=== PATIENT | male | born 1945 | race Caucasian/White ===

== ENCOUNTER 2021-05-05 08:30 | Outpatient (RCR) | payer SELFPAY ==
[2021-02-19 09:25] VITALS: PULSE 54
--- NOTE | 2021-03-24 08:24 | PCCPR ---
Absent Gerry called states he had his grandchildren this weekend and is sore from chasing them around. He has a wake and on . He will return o Monday.
== END 2021-05-05 15:38 | disposition home or self-care (01) ==
LOC: ANHCPREHAB 08:30
PROVIDERS: PCP Family Medicine; Visit Provider Family Medicine
DX: I50.30 Unspecified diastolic (congestive) heart failure (principal)
CPT/HCPCS: 93798; 99199

== ENCOUNTER 2022-01-17 09:16 | Emergency (ER) | payer MEDICARE, OTHER, SELFPAY ==
[2022-01-17 09:24] VITALS: BP 161/61; PULSE 64; RESP 16; TEMP 36.7; O2SAT 100
--- NOTE | 2022-01-17 09:32 | ED.SKABFB ---
HPI - Skin/Abscess/Foreign Bdy General Chief complaint: Skin/Abscess/Foreign Body Stated complaint: rash all over Time Seen by Provider: 01/17/22 09:32 Source: patient Mode of arrival: ambulatory Limitations: no limitations History of Present Illness HPI narrative: 76 yo M presents with c/o hives to bilateral axilla, back, wrists, thighs since yesterday. +itching. Taking benadryl with no relief. Denies changing any hygiene products, soaps or new foods. No known insect bites. Pt has been very stressed. Hx of cancer. Going to [place] this weekend for cancer check and gets very nervous before. All systems reviewed and negative except as noted above. Related Data Home Medications Medication Instructions Recorded Confirmed albuterol sulfate 90 mcg/actuation 1 inh inhalation QID PRN Shortness 02/19/21 01/17/22 aerosol inhaler Of Breath amlodipine 10 mg tablet 10 mg PO DAILY 02/19/21 01/17/22 aspirin 81 mg tablet 81 mg PO DAILY 02/19/21 01/17/22 atorvastatin 20 mg tablet 20 mg PO HS 02/19/21 01/17/22 baclofen 20 mg tablet 20 mg PO DAILY PRN Pain 02/19/21 01/17/22 budesonide 160 mcg-glycopyr 9 2 inh inhalation BID 02/19/21 01/17/22 mcg-formot 4.8 mcg/actuation HFA inhaler (Breztri Aerosphere) buspirone 5 mg tablet 5 mg PO BID 02/19/21 01/17/22 cephalexin 500 mg tablet 500 mg PO Q12H PRN Outbreak 02/19/21 01/17/22 diltiazem HCl 180 mg 180 mg PO DAILY 02/19/21 01/17/22 capsule,extended release 24 hr (Cartia XT) diphenhydramine 25 1 tablet PO HS PRN Sleep 02/19/21 01/17/22 mg-acetaminophen 500 mg tablet (Tylenol PM Extra Strength) ferrous sulfate 325 mg (65 mg 325 mg PO DAILY 02/19/21 01/17/22 iron) tablet (iron) finasteride 1 mg tablet 1 mg PO DAILY 02/19/21 01/17/22 furosemide 20 mg tablet (Lasix) 20 mg PO DAILY 02/19/21 01/17/22 lidocaine-prilocaine 2.5 %-2.5 % 1 applic topical ONCE PRN Pain 02/19/21 01/17/22 topical cream mbektjlbmbqa-usnqdjxk-ctkgsl tablet 1 tablet PO DAILY 02/19/21 01/17/22 sertraline 100 mg tablet (Zoloft) 100 mg PO DAILY 02/19/21 01/17/22 simethicone 80 mg chewable tablet 80 mg PO DAILY 02/19/21 01/17/22 tamsulosin 0.4 mg capsule 0.4 mg PO DAILY 02/19/21 01/17/22 zolpidem 12.5 mg tablet,extended 12.5 mg PO DAILY 02/19/21 01/17/22 release,multiphase Allergies Allergy/AdvReac Type Severity Reaction Status Date / Time TRENT Inhibitors Allergy Unknown Verified 01/17/22 09:34 hydrocodone Allergy Unknown Verified 01/17/22 09:34 metoprolol Allergy Unknown Verified 01/17/22 09:34 morphine Allergy Unknown Verified 01/17/22 09:34 rivaroxaban [From Xarelto] Allergy Unknown Verified 01/17/22 09:34 adhesive AdvReac Hives Verified 01/17/22 09:34 Review of Systems Review of Systems: CONSTITUTIONAL: Denies fever, chills, or sweats. EYES: Denies visual changes, redness, or discharge. ENT: Denies rhinorrhea, congestion, sore throat, or otalgia. CARDIOVASCULAR: Denies chest pain, palpitations, or edema. RESPIRATORY: Denies cough or dyspnea. GASTROINTESTINAL: Denies abdominal pain, nausea, vomiting, or diarrhea. GENITOURINARY: Denies dysuria or hematuria. SKIN: Reports itchy hives. MUSCULOSKELETAL: Denies back pain, joint pain, or myalgia. NEUROLOGIC: Denies headache, numbness, or weakness. PSYCHIATRIC: Denies anxiety or depression. All other systems reviewed are negative, except as documented in HPI. [facility] Family History Family History (Updated 02/19/21 @ 08:34 by Judi Castellanos RN) Father Non-Hodgkin lymphoma Mother Chronic obstructive pulmonary disease Social History Social History Smoking status: Never smoker Comments At time of signature, agree with nursing past medical, surgical, social and family history. There is no relevant family history pertinent to the presenting complaint. Exam Narrative: GENERAL: This is a well-nourished, well-developed patient, in no apparent distress. HEAD: normocephalic, atraumatic. EYES: PERRL. Sclera clear/white. Vision is grossly inta
[2022-01-17] MEDS: predniSONE 20 MG TABLET 40 MG PO (09:48)
== END 2022-01-17 09:50 | disposition home or self-care (01) ==
PROVIDERS: Emergency Provider Nurse Practitioner Family; PCP Family Medicine
DX: L50.9 Urticaria, unspecified (principal); I48.91 Unspecified atrial fibrillation; I11.0 Hypertensive heart disease with heart failure; I50.30 Unspecified diastolic (congestive) heart failure; E78.00 Pure hypercholesterolemia, unspecified; J44.9 Chronic obstructive pulmonary disease, unspecified; G47.30 Sleep apnea, unspecified
CPT/HCPCS: 99213; G0463; J7512

== ENCOUNTER 2022-06-14 10:31 | Emergency (ER) | payer MEDICARE, OTHER, SELFPAY ==
[2022-06-14 11:40] VITALS: BP 129/59; PULSE 71; RESP 16; TEMP 36.8; O2SAT 98
--- NOTE | 2022-06-14 12:42 | ED.URI ---
HPI - URI/Sore Throat General Chief Complaint: Upper Respiratory Infection Stated Complaint: Sore Throat Time Seen by Provider: 06/14/22 12:42 Source: patient and RN notes reviewed Mode of arrival: ambulatory Limitations: no limitations History of Present Illness HPI Narrative: 76-year-old male with history of recent immunotherapy presents with concern for sore throat. He reports 1 week history of symptoms. He reports mild cough, nausea and diarrhea. He reports taking Mucinex. He denies fever, aches, chills sweats. Reports he was recently at a hospital for his immunotherapy MD elicited complaint: cough and sore throat Related Data Home Medications Medication Instructions Recorded Confirmed albuterol sulfate 90 mcg/actuation 1 inh inhalation QID PRN Shortness 02/19/21 01/17/22 aerosol inhaler Of Breath amlodipine 10 mg tablet 10 mg PO DAILY 02/19/21 01/17/22 aspirin 81 mg tablet 81 mg PO DAILY 02/19/21 01/17/22 atorvastatin 20 mg tablet 20 mg PO HS 02/19/21 01/17/22 baclofen 20 mg tablet 20 mg PO DAILY PRN Pain 02/19/21 01/17/22 budesonide 160 mcg-glycopyr 9 2 inh inhalation BID 02/19/21 01/17/22 mcg-formot 4.8 mcg/actuation HFA inhaler (Breztri Aerosphere) buspirone 5 mg tablet 5 mg PO BID 02/19/21 01/17/22 diltiazem HCl 180 mg 180 mg PO DAILY 02/19/21 01/17/22 capsule,extended release 24 hr (Cartia XT) diphenhydramine 25 1 tablet PO HS PRN Sleep 02/19/21 01/17/22 mg-acetaminophen 500 mg tablet (Tylenol PM Extra Strength) ferrous sulfate 325 mg (65 mg 325 mg PO DAILY 02/19/21 01/17/22 iron) tablet (iron) finasteride 1 mg tablet 1 mg PO DAILY 02/19/21 01/17/22 furosemide 20 mg tablet (Lasix) 20 mg PO DAILY 02/19/21 01/17/22 lidocaine-prilocaine 2.5 %-2.5 % 1 applic topical ONCE PRN Pain 02/19/21 01/17/22 topical cream nyhavbxqvstk-cxxirozy-aysvda tablet 1 tablet PO DAILY 02/19/21 01/17/22 sertraline 100 mg tablet (Zoloft) 100 mg PO DAILY 02/19/21 01/17/22 simethicone 80 mg chewable tablet 80 mg PO DAILY 02/19/21 01/17/22 tamsulosin 0.4 mg capsule 0.4 mg PO DAILY 02/19/21 01/17/22 zolpidem 12.5 mg tablet,extended 12.5 mg PO DAILY 02/19/21 01/17/22 release,multiphase Allergies Allergy/AdvReac Type Severity Reaction Status Date / Time TRENT Inhibitors Allergy Unknown Verified 01/17/22 09:34 hydrocodone Allergy Unknown Verified 01/17/22 09:34 metoprolol Allergy Unknown Verified 01/17/22 09:34 morphine Allergy Unknown Verified 01/17/22 09:34 rivaroxaban [From Xarelto] Allergy Unknown Verified 01/17/22 09:34 adhesive AdvReac Hives Verified 01/17/22 09:34 Review of Systems Review of Systems: CONSTITUTIONAL: Denies malaise, chills, sweats, or fever. EYES: Denies visual changes, redness, or discharge. ENT: Reports rhinorrhea, sore throat. Denies congestion, sinus pain, otalgia CARDIOVASCULAR: Denies chest pain, palpitations, or edema. RESPIRATORY: Denies cough. Denies dyspnea. GASTROINTESTINAL: Denies abdominal pain, vomiting. Reports nausea, diarrhea SKIN: Denies rash or itching. MUSCULOSKELETAL: Denies myalgia. NEUROLOGIC: Denies headache. All systems reviewed & are unremarkable except as noted in HPI and below PMFSH Family History Family History (Updated 02/19/21 @ 08:34 by Judi Castellanos RN) Father Non-Hodgkin lymphoma Mother Chronic obstructive pulmonary disease Social History Social History Smoking status: Never smoker Comments At time of signature, agree with nursing past medical, surgical, social and family history. There is no relevant family history pertinent to the presenting complaint Exam Narrative: GENERAL: Well-appearing, well-nourished, and in no acute distress. HEAD: Normocephalic EYES: PERRLA, conjunctivae clear ENT: Nares clear, turbinates edematous and erythematous, clear discharge. Mucous membranes moist. TM pearly pa with sharp light reflex bilaterally; no tragal tenderness. Oropharynx not erythematous without lesions. Tonsils not enlarged and with
== END 2022-06-14 13:11 | disposition home or self-care (01) ==
PROVIDERS: Emergency Provider Nurse Practitioner; PCP Family Medicine
DX: J02.9 Acute pharyngitis, unspecified (principal)
CPT/HCPCS: 87081; 87880; 99213; G0463

== ENCOUNTER 2023-04-28 10:23 | Emergency (ER) | payer MEDICARE, OTHER, SELFPAY ==
--- NOTE | ~2023-04-28 | XR_ITS ---
EXAMINATION: XR chest 2V DATE: 04/28/2023 10:56 INDICATION: Cough TECHNIQUE: PA and lateral views of the chest are obtained. COMPARISON: None available FINDINGS: The lungs are free of acute opacities. No pleural effusion or pneumothorax. The cardiomedia stinal silhouette is normal. There is mild thoracic spondylosis. A right internal jugular Port-A-Cath ends with its tip in the distal superior vena cava. IMPRESSION: 1. No acute cardiopulmonary abnormality. Reviewed, dictated and finalized at location B.
[2023-04-28 10:35] VITALS: BP 136/52; PULSE 64; RESP 14; TEMP 36.6; O2SAT 96
[2023-04-28 10:51] VITALS: BP 136/52; PULSE 64; RESP 14; TEMP 36.6; O2SAT 96
--- NOTE | 2023-04-28 10:58 | ED.URI ---
HPI - URI/Sore Throat General Chief Complaint: Upper Respiratory Infection Stated Complaint: cough History of Present Illness HPI Narrative: PATIENT PRESENTS WITH A COUGH NO SHORTNESS OF BREATH AND NO CHEST PAIN. HISTORY OF PNEUMONIA AND IS CONCERNED THAT HE MAY HAVE PNEUMONIA AGAIN. Related Data Home Medications Medication Instructions Recorded Confirmed albuterol sulfate 90 mcg/actuation 1 inh inhalation QID PRN Shortness 02/19/21 04/28/23 aerosol inhaler Of Breath amlodipine 10 mg tablet 10 mg PO DAILY 02/19/21 04/28/23 atorvastatin 20 mg tablet 20 mg PO HS 02/19/21 04/28/23 baclofen 20 mg tablet 20 mg PO DAILY PRN Pain 02/19/21 04/28/23 budesonide 160 mcg-glycopyr 9 2 inh inhalation BID 02/19/21 04/28/23 mcg-formot 4.8 mcg/actuation HFA inhaler (Breztri Aerosphere) buspirone 5 mg tablet 5 mg PO BID 02/19/21 04/28/23 diltiazem HCl 180 mg 180 mg PO DAILY 02/19/21 04/28/23 capsule,extended release 24 hr (Cartia XT) ferrous sulfate 325 mg (65 mg 325 mg PO DAILY 02/19/21 04/28/23 iron) tablet (iron) finasteride 1 mg tablet 1 mg PO DAILY 02/19/21 04/28/23 furosemide 20 mg tablet (Lasix) 20 mg PO DAILY 02/19/21 04/28/23 habrttuxcdlm-swzkegfa-goqdoe tablet 1 tablet PO DAILY 02/19/21 04/28/23 sertraline 100 mg tablet (Zoloft) 100 mg PO DAILY 02/19/21 04/28/23 simethicone 80 mg chewable tablet 80 mg PO DAILY 02/19/21 04/28/23 tamsulosin 0.4 mg capsule 0.4 mg PO DAILY 02/19/21 04/28/23 zolpidem 12.5 mg tablet,extended 12.5 mg PO DAILY 02/19/21 04/28/23 release,multiphase aspirin 81 mg tablet,delayed 81 mg PO DAILY 04/28/23 04/28/23 release (Adult Low Dose Aspirin) Allergies Allergy/AdvReac Type Severity Reaction Status Date / Time TRENT Inhibitors Allergy Unknown Verified 04/28/23 10:40 hydrocodone Allergy Unknown Verified 04/28/23 10:40 metoprolol Allergy Unknown Verified 04/28/23 10:40 morphine Allergy Unknown Verified 04/28/23 10:40 rivaroxaban [From Xarelto] Allergy Unknown Verified 04/28/23 10:40 adhesive AdvReac Hives Verified 04/28/23 10:40 Review of Systems Review of Systems: CONSTITUTIONAL: DENIES FEVER, CHILLS, OR SWEATS. EYES: DENIES VISUAL CHANGES, REDNESS, OR DISCHARGE. ENT: DENIES RHINORRHEA, CONGESTION, SORE THROAT, OR OTALGIA. CARDIOVASCULAR: DENIES CHEST PAIN, PALPITATIONS, OR EDEMA. RESPIRATORY: DENIES COUGH OR DYSPNEA. GASTROINTESTINAL: DENIES ABDOMINAL PAIN, NAUSEA, VOMITING, OR DIARRHEA. GENITOURINARY: DENIES DYSURIA OR HEMATURIA. SKIN: DENIES RASH OR ITCHING. MUSCULOSKELETAL: DENIES BACK PAIN, JOINT PAIN, OR MYALGIA. NEUROLOGIC: DENIES HEADACHE, NUMBNESS, OR WEAKNESS. PSYCHIATRIC: DENIES ANXIETY OR DEPRESSION. [facility] Family History Family History (Updated 02/19/21 @ 08:34 by Judi Castellanos RN) Father Non-Hodgkin lymphoma Mother Chronic obstructive pulmonary disease Social History Social History Smoking status: Never smoker Comments AT TIME OF SIGNATURE, AGREE WITH NURSING PAST MEDICAL, SURGICAL, SOCIAL AND FAMILY HISTORY. THERE IS NO RELEVANT FAMILY HISTORY PERTINENT TO THE PRESENTING COMPLAINT Exam Narrative: GENERAL: WELL-APPEARING, WELL-NOURISHED, AND IN NO ACUTE DISTRESS. HEAD: NORMOCEPHALIC, ATRAUMATIC. EYES: PERRLA AND EOMI. ENT: NARES CLEAR, NO RHINORRHEA OR EPISTAXIS. MUCOUS MEMBRANES MOIST. NECK: SUPPLE. CHEST: CLEAR TO AUSCULTATION. NO RESPIRATORY DISTRESS. HEART: REGULAR RATE AND RHYTHM. NO MURMUR HEARD. NORMAL PERIPHERAL PULSES. ABDOMEN: SOFT, NONTENDER, NONDISTENDED, NORMAL ACTIVE BOWEL SOUNDS. EXTREMITIES: NORMAL RANGE OF MOTION. NO EDEMA. SKIN: WARM, DRY, NO RASH. NEURO: NO FOCAL DEFICITS. ALERT AND ORIENTED X3. TULIO COMA SCALE EYE OPENING: SPONTANEOUS 4 TULIO COMA SCALE MOTOR: OBEYS COMMANDS 6 TULIO COMA SCALE VERBAL: ORIENTED 5 TULIO COMA SCALE TOTAL 15 Course Course Level of Care: Express Care Visit Vital Signs Vital signs: Vital Signs Temperature 36.6 C 04/28/23 10:35 Pulse Rate 64 04/28/23
== END 2023-04-28 11:25 | disposition home or self-care (01) ==
PROVIDERS: Emergency Provider Nurse Practitioner Family; PCP Family Medicine
DX: J06.9 Acute upper respiratory infection, unspecified (principal); J40 Bronchitis, not specified as acute or chronic; Z79.899 Other long term (current) drug therapy; Z79.82 Long term (current) use of aspirin
CPT/HCPCS: 71046; 99213; G0463

== ENCOUNTER 2024-11-19 18:42 | Emergency (ER) | payer MEDICARE, OTHER, SELFPAY ==
--- NOTE | ~2024-11-19 | XR_ITS ---
CHEST RADIOGRAPH, PA AND LATERAL CLINICAL HISTORY: cough . COMPARISON: 04/28/2023 TECHNIQUE: PA and lateral views of the chest. FINDINGS Right internal jugular central venous port catheter redemonstrated with its tip projecting over the c avoatrial junction. The remainder of the cardiomediastinal silhouette is otherwise unremarkable. The lungs are clear. IMPRESSION: No focal infiltrate or effusion. Reviewed, dictated and finalized at location A.
--- OUTSIDE RECORDS SUMMARY | 2024-11-19 18:44 | XMS_ITS | Encounter Summary ---
Author Organization [facility] Address [address] [place] [address] Phone Care Team Providers Care Toe Laster Name Role Phone Olievr Tidwell MD PhD Unavailable [phone] Osmar Echevarria MD Unavailable [phone] Bryce Real MD Unavailable [phone] Heri Torres MD Primary Care Provider [phone] Michele Garduno MD Unavailable [phone] Encounter Details Date Type Department Care Team (Late st Contact Info) Description 10/12/2020 Telephone [facility] Cardiology [address] [place] [address] Medical Office Building [address] [place] [address] Sarahy Cancino Social History Tobacco Use Types Packs/Day Years Used Date Smoking Tobacco: Never Smokeless Tobacco: Never Alcohol Use Standard Drinks/Week Comments Yes 1 (1 standard drink = 0.6 oz pur e alcohol) 1 drink/wk PHQ-2 Answer Date Recorded PHQ-2 Total Score (If total score is 3 or more points, staff should administer the PHQ-9) 0 10/13/2020 Sex and Gender Information Value Date Recorded Sex Assigned at Not on file Legal Sex Male 11:53 PM MOSS GATHERER Gender Identity Not on file Sexual Orientation Not on file documented as of this encounter Plan of Treatment Not on file documented as of this encounter Visit Diagnoses Not on filedocumented in this encounter Additional Health Concerns Infection Onset Date Last Indicated Resolved Time COVID: Suspected 12/18/2023 12/18/2023 12/18/2023 3:21 PM CDT documented as of this encounter Care Teams Toe Laster Relationship Specialty Start Date End Date Heri Torres MD [address] [place] [address] PCP - General Family Medicine 01/09/20 Oliver Tidwell MD PhD [address] [place] [address] Radiation Oncologist Radiation Oncology 05/07/18 Osmar Echevarria MD [address] [address] Referring Physician Neurology 11/21/19 Bryce Real MD [address] [facility] [address] [place] [address] Consulting Physician Radiation Oncology 11/21/19 Micheel Garduno MD [address] DEPT OPHTHALMOLOGY, [address] [place] [address] Surgeon Ophthalmology 11/01/24 documented as of this encounter
--- OUTSIDE RECORDS SUMMARY | 2024-11-19 18:44 | XMS_ITS | Encounter Summary ---
Author Organization [facility] Address [address] [place] [address] Phone Care Team Providers Care Chrome Polisher Name Role Phone Oliver Tidwell MD PhD Unavailable [phone] Osmar Echevarria MD Unavailable [phone] Bryce Real MD Unavailable [phone] Heri Torres MD Primary Care Provider [phone] Michele Garduno MD Unavailable [phone] Reason for Visit * Reason Comments Post-op Encounter Details Date Type Department Care Team (Late st Contact Info) Description 11/19/2024 10:00 AM CDT Office Visit [facility] Ophthalmology [address] [facility] 2[address] Floor, [address] [place] [address] Michele Garduno MD [address] [facility] DEPT OPHTHALMOLOGY, [address] [place] [address] Brow ptosis, left (Primary Dx) Social History Tobacco Use Types Packs/Day Years Used Date Smoking Tobacco: Never Smokeless Tobacco: Never Alcohol Use Standard Drinks/Week Comments Yes 1 (1 standard drink = 0.6 oz pur e alcohol) 1 drink/wk AUDIT-C Answer Date Recorded Q1: How often do you have a drink containing alc ohol? Monthly or less 11/01/2024 Q2: How many drinks containi ng alcohol do you have on a typical day when you are drinking? 1 or 2 11/01/2024 Q3: How often do you have si x or more drinks on one occasion? Never 11/01/2024 PHQ-2 Answer Date Recorded PHQ-2 Total Score (If total score is 3 or more points, staff should administer the PHQ-9) 0 05/23/2024 Personal Safety Answer Date Recorded Have you ever been in or are you currently in a harmful physical or emotional relationship or is someone making you feel afraid or unsafe? Denies 11/01/2024 Sex and Gender Information Value Date Recorded Sex Assigned at Not on file Legal Sex Male 11:53 PM FOOT GATHERER Gender Identity Not on file Sexual Orientation Not on file documented as of this encounter Progress Notes * Michele Garduno MD - 11/19/2024 10:00 AM CDT Cain Joshi is doing well after surgery. Continue topical erythromycin ointment to incisions at bedtime (QHS) for 1 week or until crusting has resolved. Call PRN concerns prior to next appointment in 6 weeks. documented in this encounter Plan of Treatment Not on file documented as of this encounter Visit Diagnoses Diagnosis Brow ptosis, left- Primary documented in this encounter Eye Exam Visual Acuity (Snellen - Linear) Right eye Left eye Dist cc 20/20 -3 20/50 -1 Correction: Glasses Tonometry Deferred/2 wk pov Pupils Dark Light Shape React APD Right eye 4 3.5 Round Minimal None Left eye 4 3.5 Round Minimal None Neuro/Psych Oriented x3: Yes Mood/Affect: Normal Sutures removed. Care Teams Chrome Polisher Relationship Specialty Start Date End Date Heri Torres MD [address] [place] [address] PCP - General Family Medicine 01/09/20 Oliver Tidwell MD PhD [address] [place] [address] Radiation Oncologist Radiation Oncology 05/07/18 Osmar Echevarria MD [address] [facility] [address] [place] [address] Referring Physician Neurology 11/21/19 Bryce Real MD [address] [facility] [address] [place] [address] Consulting Physician Radiation Oncology 11/21/19 Michele Garduno MD [address] DEPT OPHTHALMOLOGY, [address] [address] Surgeon Ophthalmology 11/01/24 documented as of this encounter
--- OUTSIDE RECORDS SUMMARY | 2024-11-19 18:44 | XMS_ITS | Clinical Summary ---
Author Organization [employer] [facility] Address [address] [place] [address] Care Team Providers Care Station Helper Name Role Phone Unavailable Primary Care Provider Unavailabl e Allergies Active Allergy Reactions Criticality Noted Date Comments Adhesive Tape-Silicones Rash Low 10/07/2024 EKG leads Morphine Nausea and Vomiting Low 10/07/2024 Medications traMADoL (ULTRAM) 50 mg tablet Take 100 mg by mouth 2 times daily. 07/26/2024 Active gabapentin (NEURONTIN) 300 mg capsule Take 1 Capsule by mouth 3 times daily. 11/28/2022 Active dilTIAZem (CARDIZEM CD, CARTIA XT) 300 mg Controlled Delivery 24 hour capsule Take 300 mg by mouth daily. 03/22/2022 Active busPIRone (BUSPAR) 15 mg Tablet Take 15 mg by mouth. 04/18/2024 Active furosemide (LASIX) 20 mg tablet Take 20 mg by mouth daily. 07/18/2024 Active tamsulosin (FLOMAX) 0.4 mg capsule Take 1 Capsule by mouth daily. 05/20/2024 Active sertraline (ZOLOFT) 100 mg tablet TAKE 1 & 1/2 (ONE & ONE-HALF) TABLETS BY MOUTH ONCE DAILY 10/29/2022 Active pentoxifylline (TRENtal) 400 mg Extended Release tablet Take 400 mg by mouth daily. Active finasteride (PROPECIA) 1 mg Tablet Take 1 mg by mouth daily. 06/27/2024 Active zolpidem (AMBIEN CR) 12.5 mg Controlled Release tablet Take 12.5 mg by mouth. 10/29/2022 Active Active Problems No known active problems Encounters Date Type Department Care Team Description 11/05/2024 9:45 AM CDT - 11/05/2024 11:59 PM CDT Hospital Encounter [facility] [address] [phone] Nilesh Tatum MD Discharge Disposition: Home or Self Care 11/05/2024 9:20 AM CDT - 11/05/2024 11:59 PM CDT Hospital Encounter [facility] [address] [phone] Nilesh Tatum MD Discharge Disposition: Home or Self Care 11/04/[address] [facility] [address] [phone] Alyssa Irby RN RFA pre-procedure call 10/21/2024 9:31 AM CDT - 10/21/2024 11:59 PM CDT Hospital Encounter [facility] Imaging [address] [phone] Nilesh Tatum MD Discharge Disposition: Home or Self Care 10/21/2024 9:10 AM CDT - 10/21/2024 11:59 PM CDT Hospital Encounter [facility] Imaging [address] [address] Nilesh Tatum MD Discharge Disposition: Home or Self Care 10/07/2024 9:39 AM CDT - 10/07/2024 11:59 PM CDT Hospital Encounter [facility] Imaging [address] [address] Nilesh Tatum MD Discharge Disposition: Home or Self Care 10/07/2024 9:26 AM CDT - 10/07/2024 11:59 PM CDT Hospital Encounter [facility] Imaging [address] [phone] Nilesh Tatum MD Discharge Disposition: Home or Self Care 10/02/2024 External Device Data STL ABSTRACTION Provider, Abstract 09/21/2024 External Device Data STL ABSTRACTION Provider, Abstract 09/21/2024 External Device Data STL ABSTRACTION Provider, Abstract 09/19/2024 1:20 PM VINEYARDIST Office Visit [facility] [address] [phone] Nilesh Tatum MD Chronic knee pain after total replacement of both knee joints (Primary Dx); Lumbar spondylosis; Bilateral sacroiliitis 09/19/2024 Prep for Surgery [facility] [address] [phone] Ashly Newell PCA Chronic knee pain after total replacement of both knee joints (Primary Dx); Lumbar spondylosis 09/13/2024 4:44 PM VINEYARDIST - 09/13/2024 11:59 PM VINEYARDIST Hospital Encounter [facility] [place] [address] [place] [phone] Yair Chavez MD Discharge Disposition: Home or Self Care 09/04/2024 External Device Data STL ABSTRACTION Provider, Abstract from Last 3 Months Social History Tobacco Use Types Packs/Day Years Used Date Smoking Tobacco: Never Sex and Gender Information Value Date Recorded Sex Assigned at Not on file Legal Sex Male 10:55 PM CDT Gender Identity Not on file Sexual Orientation Not on file Last Filed Vital Signs Vital Sign Reading Time Taken Comments Blood Pressure 165/71 11/05/2024 11:01 AM CDT Pulse 63 11/05/2024 11:01 AM CDT Temperature - - Respiratory Rate 18 11/05/2024 11:01 AM CDT Oxygen Saturation 100% 11/05/2024 11:01 AM CDT Inhaled Oxygen Concentration - - Weight 105.2 kg (232 lb) 09/19/2024 11:00 AM VINEYARDIST Height 162.6 cm (5' 4 ) 09/19/2024 11:00 AM VINEYARDIST Body Mass Index 39.82 09/19/2024 11:00 AM VINEYARDIST Plan of Treatment Upcoming Encounters Date Type Department Care Team (Late st Contact Info) Description 12/04/2024 1:15 PM CDT Appointment [facility] [address] [phone] 01/06/2025 10:45 AM CDT Appointment [facility] [address] [place] [address] [place] [address] [place] [address] Health Maintenance Due Date Last Done Comments ZOSTER VACCINE (1 of 2) 1996 DTAP/TDAP/TD VACCINES (2 - T d or Tdap) 05/30/2017 05/30/2007 RSV VACCINE (60+ or ) (1 - 1-dose 75+ series) 2021 COVID-19 Vaccine (4 - 2023-2 5 season) 2024 05/27/2021, 08/24/2020, 07/27/2020 PNEUMOCOCCAL VACCINE 50+ YEARS Completed 0 03/17/2016, 09/10/2014, 10/01/2012, Additional history exists COLORECTAL SCREENING Discontinued 01/28/2019, 01/28/2019, 11/01/2013 Colorectal Cancer Screening Discontinued INFLUENZA VACCINE Completed 05/23/2024, , 05/25/2022, Additional history exists FIT-DNA Q 3 years Discontinued FIT/FOBT Q 1 year Discontinued Flex Sig/CT Colonography Q 5 years Discontinued Procedures Procedure Name Priority Date/Time Associated Diagnosis Comments XR FLUORO NEEDLE GUIDANCE SPINE Routine 11/05/2024 10:47 AM CDT XR FLUORO NEEDLE GUIDANCE SPINE Routine 10/21/2024 10:00 AM CDT XR FLUORO NEEDLE GUIDANCE SPINE Routine 10/07/2024 9:58 AM CDT MRI LUMBAR WO CONTRAST Routine 09/13/2024 6:04 PM VINEYARDIST Lumbar radiculopathy from Last 3 Months Results * XR FLUORO NEEDLE GUIDANCE SPINE (11/05/2024 10:47 AM CDT) Only the most recent of3 resultswithin the time period is included. Narrative [facility] - 11/05/2024 10:47 AM CDT Order information only. Exam was auto-finalized. us Nilesh Tatum MD DIAGNOSTIC IMAGING ORDERABLES F inal Result [facility] [place] CLIA# [id number] [address], [address] [place] [address] * MRI LUMBAR WO CONTRAST (09/13/2024 6:04 PM VINEYARDIST) Anatomical Region Laterality Modality Spine Magnetic Resonan ce 09/13/2024 6:04 PM VINEYARDIST Impressions 09/14/2024 2:04 PM VINEYARDIST IMPRESSION: L1-2 and L2-3 retrolisthesis. L2-3 and L1-2 neural foraminal stenosis. Previously identified anterolisthesis at L4-5 level is reduced on these images as the patient is imaged supine. No acute fracture seen. Normal conus. DICTATION LOCATION: Location 4 Narrative 09/14/2024 2:04 PM VINEYARDIST MR IMAGING LUMBAR SPINE DATE: 09/13/2024 HISTORY: Lumbar radiculopathy, no prior management. Patient states he hurt his back in the gym about eight years ago and it has gotten progressively worse. Comparison radiographs 08/13/2024 lumbar spine three views FINDINGS: On the prior lumbar spine exam there was a 6.3 mm degenerative anterolisthesis at L4-5. On the current study this is measuring about 2.7 mm. This is felt to be reduced with the patient lying supine. Also noted on the current examination is a 3.9 mm L1-2 retrolisthesis and a 4.3 mm L2-3 retrolisthesis. L1-2 has narrowing of intervertebral disc space. Mild encroachment is seen due to the retrolisthesis on spinal canal. There is severe right L1-2 neural foraminal stenosis. L2 level canal is normal in AP diameter. L2-3 has central left and foraminal disc herniation and there is left L2-3 neural foraminal stenosis. L3 level is normal in AP diameter. L3-4 has narrowing of intervertebral disc space. L4 level canal is normal in AP diameter. L4-5 has broad-based disc herniation central, right and foraminal. L5 level is normal in AP diameter. L5-S1 level has facet joint hypertrophy. Procedure Note Deny Haas MD - 09/14/2024 MR IMAGING LUMBAR SPINE DATE: 09/13/2024 HISTORY: Lumbar radiculopathy, no prior management. Patient states he hurt his back in the gym about eight years ago and it has gotten progressively worse. Comparison radiographs 08/13/2024 lumbar spine three views FINDINGS: On the prior lumbar spine exam there was a 6.3 mm degenerative anterolisthesis at L4-5. On the current study this is measuring about 2.7 mm. This is felt to be reduced with the patient lying supine. Also noted on the current examination is a 3.9 mm L1-2 retrolisthesis and a 4.3 mm L2-3 retrolisthesis. L1-2 has narrowing of intervertebral disc space. Mild encroachment is seen due to the retrolisthesis on spinal canal. There is severe right L1-2 neural foraminal stenosis. L2 level canal is normal in AP diameter. L2-3 has central left and foraminal disc herniation and there is left L2-3 neural foraminal stenosis. L3 level is normal in AP diameter. L3-4 has narrowing of intervertebral disc space. L4 level canal is normal in AP diameter. L4-5 has broad-based disc herniation central, right and foraminal. L5 level is normal in AP diameter. L5-S1 level has facet joint hypertrophy. IMPRESSION: L1-2 and L2-3 retrolisthesis. L2-3 and L1-2 neural foraminal stenosis. Previously identified anterolisthesis at L4-5 level is reduced on these images as the patient is imaged supine. No acute fracture seen. Normal conus. DICTATION LOCATION: Location 4 Yair Chavez MD MR ORDERABLES Final Result from Last 3 Months Insurance MEDICARE PART A AND B [facility]
--- OUTSIDE RECORDS SUMMARY | 2024-11-19 18:45 | XMS_ITS | Continuity of Care Document ---
Author Organization [facility] Address [address] [place] [address] Phone Care Team Providers Care Field Sales Trainer Name Role Phone Krista WILSON, Anam Unavailable Unavailable Procedures [facility] Advance Directives Directive Yes / No Effective Date File Name No Information Encounters Encounter Description Practice Location Reason(s) For Visit Diagnoses Date Provider Providers Copied on Encounter Office consultation, [facility], [address] [place] [address], [id number], tel:[phone] [facility] No Information 8 Krista Mendieta. [address] [place] [address], [place] [address], [place], [place], [id number] , . tel: [phone] Family History Family Member Type Diagnosis Age At Onset No Information Payers Payer name Insurance type Covered green party ID Authoriza tilopez(s) [employer] [id number] Social History Type Description Quantity Date Captured Comments Sex Male Smoking Status No Information Chief Complaint And Reason For Visit No Information Reason For Referral Reason For Referral No Information History Of Present Illness Encounter Date Complaint History Of Prese nt Illness No Information Functional Status Date Functional Assessmen t No Information Instructions Date Instruction Additional Infor mation No Information Assessments Type Assessment Date No Information Patient Care Teams Name Effective Dates (start - stop) Status Members No Information
--- OUTSIDE RECORDS SUMMARY | 2024-11-19 18:45 | XMS_ITS | Continuity of Care Document ---
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 THEN MAY TAKE 1 TABLET EVERY 6 HOURS NEEDED FOR PAIN. - Active Valium 10 mg tablet take 1-2 tablets 1 hr prior to procedure. Take remaining q 6 hours PRN - Active Mobic 15 mg tablet take 1 tablet by oral route every day - Active cyclobenzaprine 10 mg tablet take 1 by Oral route at HS PRN muscle spasms - Active DILTIAZEM 24HR ER (unknown strength) Not Available - Active HYDROCHLOROTHIAZIDE (unknown strength) Not Available - Active LOSARTAN POTASSIUM (unknown strength) Not Available - Active METOPROLOL SUCCINATE (unknown strength) Not Available - Active ALLOPURINOL (unknown strength) Not Available - Active TESTOSTERONE (unknown strength) Not Available - Active ACETYL SALICYLIC ACID (unknown strength) Not Available - Active GINSENG (unknown strength) Not Available - Active Procedures Procedure Date OFFICE/OUTPATIENT VISIT EST OFFICE/OUTPATIENT VISIT NEW RADEX KNE 3 VIEWS OFFICE/OUTPATIENT VISIT EST RADEX KNE 3 VIEWS RADEX KNE 3 VIEWS OFFICE/OUTPATIENT VISIT EST RADEX KNE 3 VIEWS OFFICE/OUTPATIENT VISIT EST RADEX KNE 3 VIEWS OFFICE/OUTPATIENT VISIT EST POSTOP FOLLOW-UP VISIT POSTOP FOLLOW-UP VISIT RADEX KNE 3 VIEWS POSTOP FOLLOW-UP VISIT DRAIN/INJECT JOINT/BURSA Methylprednisolone 40mg/ml inj 18 OFFICE/OUTPATIENT VISIT EST OFFICE/OUTPATIENT VISIT EST RADEX KNE 3 VIEWS OFFICE/OUTPATIENT VISIT EST OFFICE/OUTPATIENT VISIT EST RADEX KNE 3 VIEWS RADEX KNE 3 VIEWS OFFICE/OUTPATIENT VISIT EST OFFICE/OUTPATIENT VISIT EST RADEX KNE 3 VIEWS RADEX KNE 3 VIEWS OFFICE/OUTPATIENT VISIT NEW POSTOP FOLLOW-UP VISIT POSTOP FOLLOW-UP VISIT OFFICE/OUTPATIENT VISIT EST Advance Directives Directive Yes / No Effective Date File Name No Information Encounters Encounter Description Practice Location Reason(s) For Visit Diagnoses Date Provider Providers Copied on Encounter OFFICE/OUTPA TIENT VISIT EST [facility], [address], [facility], tel:[phone] [facility] Spondylosis without myelopathy or radiculopathy, lumbosacral regionAcute bilateral low back pain without sciatica Aug-2 202 0 Geoffrey Rossi. [address] [facility], [place], [place], [id number]. tel:[phone] [facility], [address], [address], tel:[phone] [facility] Spondylosis without myelopathy or radiculopathy, lumbosacral regionAcute bilateral low back pain without sciatica 0 Geoffrey Rossi. [address] [facility], [place], [place], [address]. tel:[phone] [facility], [address], [address], [place] tel:[phone] [facility] No Information 0 Geoffrey Rossi. [address] [facility], [place], [place], [id number]. tel:[phone] [facility], [address], [address], [place] tel:[phone] [facility] No Information 0 Geoffrey Rossi. [address] [facility], [place], [place], [address]. tel:[phone] OFFICE/OUTPA TIENT VISIT NEW [facility], [address], [address], [place] tel:[phone] [facility] Body mass index (BMI) 36.0-36.9, adultSpondylos is without myelopathy or radiculopathy, lumbosacral regionAcute bilateral low back pain without sciatica 9 Wolfyoselynjanette Rossi. [address] [facility], [place], [place], [address]. tel:[phone] [facility], [address], [address], [place] tel:[phone] [facility] No Information 9 Augusta Cordova. [address] [place], [place], [id number]. tel:[phone] OFFICE/OUTPA TIENT VISIT EST [facility], [address], [address], [place] tel:[phone] [facility] Status post left knee replacementPri marshall osteoarthritis of right knee 9 Augusta Cordova. [address] [place], [place], [id number]. tel:[phone] OFFICE/OUTPA TIENT VISIT EST [facility], [address] [address], [place], [address], [place] tel:[phone] [facility] Status post left knee replacementPri marshall osteoarthritis of right kneeBody mass index (BMI) 39.0-39.9, adult 8 [address] [facility], [place], [place], [address]. tel:[phone] OFFICE/OUTPA TIENT VISIT EST [facility], [address] [address], [place], [address], [place] tel:[phone] [facility] Primary osteoarthritis of right kneeBody mass index (BMI) 39.0-39.9, adult [address] [address] [facility], [place], [place], [address]. tel:[phone] OFFICE/OUTPA TIENT VISIT EST [facility], [address], [address], [place] tel:[phone] [facility] Status post left knee replacementPri marshall osteoarthritis of right knee [address] [address] [facility], [place], [place], [id number]. tel:[phone] [facility], [address], [address], [place] tel:[phone] [facility] Status post left knee replacement 7 8 Box[address] Annalise. [address], [id number]. tel:[phone] [facility], [address], [address], [place] tel:[phone] [facility] Status post left knee replacement 0 8 Box[address] Annalise. [address], [id number]. tel:[phone] [facility], [address] [address], [place], [address], [place] tel:[phone] [facility] Status post left knee replacement 8 Boxdor[address] Annalise. [address] [address], [place], [place], [address]. tel:[phone] [facility], [address] [address], [place], [address], [place] tel:[phone] [facility] Status post left knee replacement 8 Box[address] Annalise. [address] [address], [place], [place], [address]. tel:[phone] OFFICE/OUTPA TIENT VISIT EST [facility], [address], [address], [place] tel:[phone] [facility] Primary osteoarthritis of right kneePrimary osteoarthritis of left kneeBody mass index (BMI) 39.0-39.9, adult 8 Box[address] Annalise. [address] [address], [place], [place], [address]. tel:[phone] [facility], [address] [address], [place], [address], [place] tel:[phone] [facility] Primary osteoarthritis of left kneeEssential hypertension 7 [address] [address] [place], [place], [address]. tel:[phone] OFFICE/OUTPA TIENT VISIT EST [facility], [address] [address], [place], [address], [place] tel:[phone] [facility] Primary osteoarthritis of left knee 7 [address] [address] [place], [place], [address]. tel:[phone] OFFICE/OUTPA TIENT VISIT EST [facility], [address] [address], [place], [address], [place] tel:[phone] [facility] Primary osteoarthritis of right kneeAcute medial meniscus tear of right knee, subsequent encounterS/P arthroscopyPri marshall osteoarthritis of left kneeEssential hypertensionBo dy mass index (BMI) 40.0-44.9, adult 7 Bassam Woody. [address] [facility] [address] [facility], [place], [place], [id number]. tel:[phone] [facility], [address] [address], [place], [address], [place] tel:[phone] [facility] Tear of medial meniscus of right knee, initial encounter 7 [address] [address] [place], [place], [id number]. tel:[phone] [facility], [address], [address], [place] tel:[phone] [facility] Tear of medial meniscus of right knee, initial encounter 7 [address] [address] [facility], [place], [place], [id number]. tel:[phone] OFFICE/OUTPA TIENT VISIT EST [facility], [address] [address], [place], [address], [place] tel:[phone] [facility] Primary osteoarthritis of left kneePrimary osteoarthritis of right kneeTear of medial meniscus of right knee, initial encounter 7 [address] [address] [facility], [place], [place], [id number]. tel:[phone] OFFICE/OUTPA TIENT VISIT EST [facility], [address] [address], [place], [address], [place] tel:[phone] [facility] Primary osteoarthritis of right kneePrimary osteoarthritis of left knee Fe 7 [address] [address] [place], [place], [id number]. tel:[phone] OFFICE/OUTPA TIENT VISIT EST [facility], [address] [address], [place], [address], [place] tel:[phone] [facility] Primary osteoarthritis of left kneePrimary osteoarthritis of right knee 7 [address] [address] [facility], [place], [place], [address]. tel:[phone] [facility], [address] [address], [place], [address], [place] tel:[phone] [facility] Primary osteoarthritis of left kneeTear of medial meniscus of right knee, initial encounter 6 Boxdorfer Annalise. [address] [address], [place], [place], [id number]. tel:[phone] [facility], [address] [address], [place], [address], [place] tel:[phone] [facility] Tear of medial meniscus of right knee, initial encounterPrima ry osteoarthritis of left knee 6 Boxdorfer Annalise. [address] [address], [place], [place], [address]. tel:[phone] OFFICE/OUTPA TIENT VISIT NEW [facility], [address] [address], [place], [address], [place] tel:[phone] [facility] Acute pain of left kneeAcute pain of right kneePrimary osteoarthritis of left kneeTear of medial meniscus of right knee, initial encounterBody mass index (BMI) 39.0-39.9, adult Feb- 6 [address] [address] [facility], [place], [place], [id number]. tel:[phone] Referring Provider: Nicholas Cruz [address], [place], [address]. tel:[phone] [facility], [address] [address], [place], [address], [place] tel:[phone] [facility] Aftercare following surgeryCarpal tunnel syndrome Oct-0 4 Tanya Conley. [address], [place], [place], [address]. tel:[phone] [facility], [address] [address], [place], [address], [place] tel:[phone] [facility] Aftercare following surgeryCarpal tunnel syndrome 4 Tanya Conley. [address], [place], [place], [address]. tel:[phone] OFFICE/OUTPA TIENT VISIT EST [facility], [address], [place], [address], [place] tel:[phone] [facility] Carpal tunnel syndromeHypert ension, Unspecified 4 Tanya Conley. [address], [place], [place], [address]. tel:[phone] Family History Family Member Type Diagnosis Age At Onset Mother Problem (finding) chronic obstructive argent[place] g disease Father Problem (finding) Father Problem (finding) malignant neoplasm of l anjum Immunizations Vaccine Date Status Comments Pneumo (2 yrs or older)(PPV) administered Source: Other Provider Payers Payer name Insurance type Covered republican ID Noah stewart(s) Medicare E2 OT [id number] Physician [place] OT [id number] Social History Type Description Quantity Date Captured Comments Alcohol Use Details beer & liquor Caffeine Use Details Unknown Tobacco Use Status Never smoked tobacco 2019 Smoking Status Never smoker Sex Male Chief Complaint And Reason For Visit No Information Reason For Referral Reason For Referral No Information Plan Of Treatment Date Type Action Status Goal Lifestyle education regardin g diet completed Goal Lifestyle education regardin g diet completed Goal Lifestyle education regardin g diet completed Goal Dietary manageme nt education, guidance, and counseling completed Referral Ordered: DESTROY LUMB/SAC FACET JNT Bilateral spine, lumbar Appointment date/timeframe: 08/14/2019 ordered Referral Ordered: MRI ANY JT LXTR C-MATRL RT Appointment date/timeframe: 03/08/2017 ordered Referral Ordered: RADEX KNE 3 VIEWS RT ordered Referral Ordered: RADEX KNE 3 VIEWS LT ordered Future Order: Lab Order CBC w/di ff ([id number]), Ordered on: Ordered Future Order: Lab Order Comprehe nsive Metabolic Panel ([id number]), Ordered on: Ordered History Of Present Illness Encounter Date Complaint History Of Prese nt Illness No Information Functional Status Date Functional Assessmen t No Information Instructions Date Instruction Additional Infor mation Home safety checklis t for fall hazards provided Fall risk home exerc ise program handout provided Weight monitoring Related to Bod y mass index (BMI) 36.0-36.9, adult Discussed treatment options Rela lesli to Status post left knee replacement Lifestyle education regarding di et Related to Body mass index (BMI) 39.0-39.9, adult Lifestyle education regarding di et Related to Body mass index (BMI) 39.0-39.9, adult Apply ice 20 min per hour Relate d to Primary osteoarthritis of right knee Discussed treatment options Rela lesli to Status post left knee replacement Call for increase in pain Relate d to Status post left knee replacement Call for increase in pain Relate d to Status post left knee replacement Lifestyle education regarding di et Related to Body mass index (BMI) 39.0-39.9, adult Discussed surgical options Relat ed to Primary osteoarthritis of left knee Dietary management e ducation, guidance, and counseling Related to Body mass index (BMI) 40.0-44.9, adult Apply moist heat or cold 20 min per hour. Related to Primary osteoarthritis of right knee Weight loss reduces stress on joints. Related to Primary osteoarthritis of right knee Giving encouragement to exercise Related to Body mass index (BMI) 39.0-39.9, adult Apply moist heat or cold 20 min per hour. Related to Primary osteoarthritis of left knee Discussed treatment options Rela lesli to Tear of medial meniscus of right knee, initial encounter Activity as tolerated Activity as tolerated Physical activity counseling Rel ated to Dietary Surveillance Counseling Activity as tolerated Assessments Type Assessment Date assessment Spondylosis without myelopathy or radiculopathy, lumbosacral region assessment Acute bilateral low back pain wi thout sciatica Patient Care Teams Name Effective Dates (start - stop) Status Members No Information
--- OUTSIDE RECORDS SUMMARY | 2024-11-19 18:45 | XMS_ITS | Encounter Summary ---
Author Organization [facility] Address [address] [place] [address] Care Team Providers Care Help Desk Technician Name Role Phone Nicholas Santos MD Primary Care Provider [phone] Oliver Tidwell MD PhD Unavailable [phone] Osmar Echevarria MD Unavailable [phone] Bryce Real MD Unavailable [phone] Berta Myles MD Unavailable [phone] Heri Torres MD Primary Care Provider [phone] Michele Garduno MD Unavailable [phone] Encounter Details Date Type Department Care Team (Late st Contact Info) Description 11/19/2019 [facility] [address] [place] [id number] Leo Haley, RT Social History Tobacco Use Types Packs/Day Years Used Date Smoking Tobacco: Never Smokeless Tobacco: Never Alcohol Use Standard Drinks/Week Comments Yes 1 (1 standard drink = 0.6 oz pur e alcohol) 1 drink/wk PHQ-2 Answer Date Recorded PHQ-2 Score 6 11/19/2019 Sex and Gender Information Value Date Recorded Sex Assigned at Not on file 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 Gender Identity Not on file Sexual Orientation Not on file documented as of this encounter Plan of Treatment Not on file documented as of this encounter Visit Diagnoses Not on filedocumented in this encounter Additional Health Concerns Infection Onset Date Last Indicated Resolved Time COVID: Suspected 12/18/2023 12/18/2023 12/18/2023 3:21 PM CDT documented as of this encounter Care Teams Help Desk Technician Relationship Specialty Start Date End Date Nicholas Santos MD PCP - General 10/14/16 01/08/20 Heri Torres MD [address] [place] [address] PCP - General Family Medicine 01/09/20 Oliver Tidwell MD PhD [address] [place] [address] Radiation Oncologist Radiation Oncology 05/07/18 Osmar Echevarria MD [address] [address] Referring Physician Neurology 11/21/19 Bryce Real MD [address] [place] [address] # LL LL [address] [place] [address] Consulting Physician Radiation Oncology 11/21/19 Berta Myles MD [address] [place] [address] Referring Physician Dermatology 11/21/19 07/05/20 Michele Garduno MD [address] DEPT OPHTHALMOLOGY, [address] [address] Surgeon Ophthalmology 11/01/24 documented as of this encounter
--- OUTSIDE RECORDS SUMMARY | 2024-11-19 18:45 | XMS_ITS ---
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 Past Treatment and Therapy Plans No past plan information found. Lifetime Dose Tracking * Chemical Lifetime Dose Automatic Entry Manual Entr y Dose Length Product 87.48 mGy-cm 87.48 mGy-cm 0 mGy-cm
--- OUTSIDE RECORDS SUMMARY | 2024-11-19 18:45 | XMS_ITS | Referral Summary ---
Author Organization [facility] Address [address] [place] [address] Care Team Providers Care Staff Nurse Midwife Name Role Phone Oliver Tidwell MD PhD Unavailable [phone] Osmar Echevarria MD Unavailable [phone] Bryce Real MD Unavailable [phone] Heri Torres MD Primary Care Provider [phone] Michele Garduno MD Unavailable [phone] Encounters Date Type Department Care Team Description 11/19/2024 10:00 AM CDT Office Visit [facility] Ophthalmology [address] 2nd [address], [address] [place] [address] Michele Garduno MD Brow ptosis, left (Primary Dx) 11/12/2024 Telephone [facility] Ophthalmology [address] [facility] 6th [place] [address] Michele Garduno MD 11/11/2024 Telephone [facility] [address] [place] [address] Heri Torres MD Finasteride 1 mg Refill 11/01/2024 8:35 AM CDT - 11/01/2024 10:[address] 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] Discharge Disposition: Discharge to home or self care 10/30/2024 Telephone [facility] Ophthalmology [facility] [facility] 6th [place] [phone] Michele Garduno MD 10/30/2024 1:45 PM CDT Therapy [facility] [place] [id number] Iona Paz, PT Balance problem (Primary Dx) 10/29/2024 11:10 AM CDT Office Visit [facility] Nephrology [address] [place] [address] Advanced Medicine 5th [place] [address] [place] [address] Stage 3a chronic kidney disease (HCC) (Primary Dx); Essential hypertension; Iron deficiency anemia secondary to inadequate dietary iron intake; Benign prostatic hyperplasia with nocturia 10/24/2024 3:30 PM CDT Therapy [facility] [place] [address] [id number] Iona Paz, PT Balance problem (Primary Dx) 10/21/2024 3:15 PM CDT Therapy [facility] [place] [address] [id number] Iona Paz, PT Vertigo (Primary Dx) 10/10/2024 Telephone [facility] [address] [phone] Heri Torres MD Med Refill 10/10/2024 Telephone [facility] Cardiology [address] [facility] 8th [place] [address] [place] [address] Gorge Gupta MD Med Management 10/09/2024 Telephone [facility] Ophthalmology [address], [address] [place] [phone] Michele Garduno MD 10/08/2024 Telephone [facility] Ophthalmology [address] [facility] 6th [place] [address] Michele Garduno MD 10/04/2024 Telephone [facility] Ophthalmology [address] [facility] 2[address] [place] [address] Michele Garduno MD 10/04/2024 Plan of Care Documentation [facility] [place] [address] 10/04/2024 7:45 AM CDT Therapy [facility] [place] [address] Iona Paz, NHAN Vertigo; Balance problem 10/01/2024 10:00 AM CDT Office Visit [facility] Ophthalmology [address], [address] [place] [address] Michele Garduno MD Brow ptosis, left (Primary Dx); Paralytic lagophthalmos of left upper eyelid; Exposure keratopathy, left 09/26/2024 Telephone [facility] [address] [phone] Fanta Allen NP 09/11/2024 9:15 AM BUS GIRL Office Visit [facility] Dermatology [address] [facility] [address] [place] [phone] John Castro MD Actinic keratosis (Primary Dx); History of nonmelanoma skin cancer; Seborrheic keratosis; Multiple melanocytic nevi 09/10/2024 3:00 PM BUS GIRL Procedure visit [facility] Otolaryngology [address] [facility] 11th [place] [address] [place] [address] Ruby Aranda Au.D. Mixed conductive and sensorineural hearing loss of left ear with restricted hearing of right ear (Primary Dx) 08/23/2024 Orders Only [facility] [address] [address] Heri Torres MD 08/23/2024 Telephone [facility] [address] [address] Heri Torres MD Symptom Based Call from Last 3 Months Allergies Active Allergy Reactions Criticality Noted Date Comments Christopher Inhibitors Cough Low 04/28/2023 Adhesive Hives High 03/08/2018 Adhesive Tape-Silicones Blisters,Rash High 8 tape Hydrocodone Rash Medium 04/28/2023 Metoprolol Other (See comments) Low 08/01/2017 Patient does not know if allergic to beta blockers, found on allergy list from [facility] of possible allergy to beta hamilton Morphine Stomach upset Low 01/22/2020 Patient reports that it causes dry heaves & GI upset. Poison Amy Extract Rash Medium 08/01/2017 Rivaroxaban Hives Medium 09/12/2017 (was on post-op for DVT prevention) Medications cholecalciferol (VITAMIN D-3) 5,000 unit tablet Take 0.4 tablets (2,000 Units total) by mouth daily Active folic acid/multivit-m in/lutein (CENTRUM SILVER ORAL)Indication s:Vitamin Deficiency Prevention Take 1 tablet by mouth every morning Active lidocaine-prilo fan (lidocaine-pril ocaine) creamIndication s:Administratio n of Local Anesthesia Apply topically as needed for pain Apply to port 1 hour prior to chemotherapy. 30 g 3 06/03/20 20 Active ASCORBIC ACID, VITAMIN C, ORALIndications :Immune support Take 500 mg by mouth nightly Active diphenhydrAMINE -acetaminophen (TYLENOL PM) 25-500 mg tablet Take 3 tablets by mouth nightly as needed for sleep Active simethicone (GAS RELIEF EXTRA STRENGTH ORAL)Indication s:because he has CPAP Machine Take 3 tablets by mouth nightly Active baclofen (LIORESAL) 20 mg tablet Take 1 tablet (20 mg total) by mouth 2 (two) times a day as needed for muscle spasms 60 tablet 1 10/30/19 21 Active gabapentin (NEURONTIN) 300 mg capsule Take 1 capsule (300 mg total) by mouth 3 (three) times a day 270 capsule 3 11/29/19 23 Active pentoxifylline ER (TRENtal) 400 mg CR tabletIndicatio ns:Intermittent Claudication Take 1 tablet (400 mg total) by mouth nightly 01/17/20 23 Active albuterol HFA (PROVENTIL HFA,VENTOLIN HFA,PROAIR HFA) 90 mcg/actuation inhaler Inhale 2 puffs every 6 (six) hours as needed for wheezing 3 each 4 02/21/20 24 025 Active busPIRone (BUSPAR) 15 mg tabletIndicatio ns:Generalized Anxiety Disorder Take 1 tablet (15 mg total) by mouth 04/18/20 24 Active vitamin E 400 unit capsuleIndicati ons:General health Take 1 capsule (400 Units total) by mouth every morning 04/18/20 24 Active atorvastatin (LIPITOR) 20 mg tablet Take 1 tablet by mouth once daily 90 tablet 08/20/19 25 Active sertraline (ZOLOFT) 100 mg tablet TAKE 1 & 1/2 (ONE & ONE-HALF) TABLETS BY MOUTH ONCE DAILY 150 tablet 09/12/19 25 Active zolpidem CR (AMBIEN CR) 12.5 mg CR tablet TAKE 1 TABLET BY MOUTH NIGHTLY NEEDED FOR SLEEP 90 tablet 09/25/19 25 Active dilTIAZem CD (CARDIZEM CD) 300 mg 24 hr capsule Take 1 capsule (300 mg total) by mouth daily 90 capsule 1 10/11/19 25 Active Lactobacillus acidophilus (PROBIOTIC ACIDOPHILUS ORAL)Indication s:gut health Take 1 capsule by mouth every morning Active psyllium, aspartame, SF (METAMUCIL SF) 3.4 gram packetIndicatio ns:constipation Take 1 packet by mouth every morning Active vit C/E/Zn/coppr/joaquina tein/zeaxan (PRESERVISION AREDS-2 ORAL)Indication s:Eye health Take 1 tablet by mouth 2 (two) times a day Active ofloxacin (FLOXIN) 0.3 % otic solution Administer 1 drop into the left ear daily as needed (Had hole in eardrum and had a lot of discharge) NONE IN OVER A MONTH Active ibuprofen 200 mg tab/cap Take 2 tablet/capsul e (400 mg total) by mouth every 6 (six) hours as needed for pain or headaches Active busPIRone (BUSPAR) 10 mg tabletIndicatio ns:Generalized Anxiety Disorder Take 1 tablet (10 mg total) by mouth daily as needed Usually takes in afternoon Active propylene glycol (SYSTANE COMPLETE OPHT)Indication s:Dry Eye Administer 1 drop into both eyes 2 (two) times a day Active cephalexin (KEFLEX) 500 mg capsuleIndicati ons:Prophylaxis , Medical Take 2 capsules (1,000 mg total) by mouth 2 (two) times a day as needed (use when ever had dental work 2 cap before and 2 cap after procedure) 10/04/19 25 Active ferrous sulfate ER 324 mg (65 mg iron) EC tabletIndicatio ns:Iron Deficiency Anemia Take 65 mg by mouth daily with breakfast Also 3 iron infusions since 06/2024 Active furosemide (LASIX) 20 mg tabletIndicatio ns:Stage 3a chronic kidney disease (HCC) Take 1 tablet by mouth once daily 90 tablet 10/12/19 25 Active erythromycin (ILOTYCIN) ophthalmic ointment Place on incisions three times per day and in operative eye as needed. 3.5 g 3 11/02/19 25 Active tamsulosin (FLOMAX) 0.4 mg extended release capsule Take 1 capsule by mouth once daily 90 capsule 11/08/19 25 Active traMADoL (ULTRAM) 50 mg tabletIndicatio ns:Pain Take 2 tablets (100 mg total) by mouth 2 (two) times a day 120 tablet 11/08/19 25 Active finasteride (PROPECIA) 1 mg tabletIndicatio ns:Benign prostatic hyperplasia with incomplete bladder emptying Take 1 tablet (1 mg total) by mouth daily 100 tablet 1 11/13/19 25 Active tamsulosin (FLOMAX) 0.4 mg extended release capsule Take 1 capsule by mouth once daily 90 capsule 08/20/19 25 025 Discontinued finasteride (PROPECIA) 1 mg tabletIndicatio ns:Benign prostatic hyperplasia with incomplete bladder emptying Take 1 tablet by mouth once daily 100 tablet 09/12/19 25 025 Discontinued(R eorder) traMADoL (ULTRAM) 50 mg tablet Take 2 tablets by mouth twice daily 120 tablet 10/08/19 25 025 Discontinued Active Problems Problem Noted Date Diagnosed Date Paralytic lagophthalmos, left 10/02/2024 Brow ptosis, left 10/01/2024 Class 2 severe obesity due t o excess calories with serious comorbidity and body mass index (BMI) of 39.0 to 39.9 in adult 05/23/2024 Assessment & Plan (05/23/2024 12:43 PM BUS GIRL): Encouraged patient to gradually increase exercise/activity as tolerated. Secondary malignant neoplasm of unspecified site (CODE) 03/03/2024 Assessment & Plan (03/03/2024 9:11 AM CDT): Continue f/u with oncology. S/P total knee arthroplasty, bilateral Assessment & Plan (03/03/2024 9:10 AM CDT): No new swelling or pain of the knees. BMI 38.0-38.9,adult 03/03/2024 Assessment & Plan (03/03/2024 9:10 AM CDT): Encourage 150min/week aerobic exericse. HEalthy food choices. MA (dyspnea on exertion) 03/03/2024 Assessment & Plan (03/03/2024 9:10 AM CDT): Reivewed pulmonary toilet and will montior erpsonse. Reivewed workup and will check PFTs to furtehr and continue workup. Dizziness 03/03/2024 Assessment & Plan (03/03/2024 9:11 AM CDT): Supportive care. NO headache, no focal neurologicla s/s. Recurrent falls 03/03/2024 Assessment & Plan (03/03/2024 9:11 AM CDT): CHeck for cervical spine changes and will choco reilly. WIll complete with MRI of the brain for the dizziness associated changes. NO new persistent neurolgoical s/s. Bilateral chronic knee pain 09/26/2023 Assessment & Plan (09/26/2023 4:49 PM CDT): Chronic, previously seeing pain management. Seeking follow-up with orthopedist. Patient requesting oral, will need to reach out to our office with specific information of practice/provider. Previously treated with nerve blocks, for now recommended follow-up with pain management. Encouraged weight loss. Acute pain of right shoulder 09/26/2023 Assessment & Plan (09/26/2023 4:47 PM CDT): Recommended short course of NSAIDs, ibuprofen [id number] for 1-2 weeks. Instructed patient not to take medication for more than 2 weeks. Symptoms present for the past 1 month. Will continue to monitor for now. If no improvement will plan for x-ray and referral to physical therapy if indicated. 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 No drainage. Vitamin D deficiency due to chronic kidney disea se 04/18/2023 Encounter for annual wellness exam in Medicare p atient 03/17/2023 Assessment & Plan (05/23/2024 9:19 AM BUS GIRL): Preventive exam; reviewed recommended preventive screenings and vaccinations. Encourage annual flu vaccine. Wear sunscreen/protective clothing when outdoors. Assessment & Plan (03/17/2023 6:33 PM CDT): Preventive exam; reviewed recommended preventive screenings and vaccinations. Encourage annual flu vaccine. Wear sunscreen/protective clothing when outdoors. -encourage influenza and shingles vaccines. History of falling 03/17/2023 Assessment & Plan (03/17/2023 1:27 PM CDT): Discussed safety precautions. Patient with bilateral knee replacements, lower extremity weakness and peripheral neuropathy. Discussed benefits of physical therapy. Impacted cerumen of left ear 01/18/2023 Perforation of left tympanic membrane 11/28/2022 Metastatic squamous cell carcinoma 07/27/2021 Mixed conductive and sensori neural hearing loss of left ear with restricted hearing of right ear 01/01/2021 CKD (chronic kidney disease) stage 3, GFR 30-59 ml/min 12/15/2020 Assessment & Plan (03/03/2024 9:09 AM CDT): Reviewed fluid balance and no use of NSAIDs and will monitor response. Anemia in stage 3a chronic kidney disease 2020 Elevated serum creatinine 06/24/2020 Recurrent squamous cell carcinoma of skin 2019 Assessment & Plan (03/03/2024 9:09 AM CDT): Contniue f/u with Oncology in [place]. COntinues on regular surveillance. 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 I encouraged him to Cnt. With prior prescribed medication, avoiding antiviral therapy given mild-mod severity of the condition improving to be a little benefit at this time. Information regarding condition including use of artificial tears, closing of eye/use of eye patch at night encouraged. Follow-up with neurologist as week as scheduled. Unilateral facial pain 10/14/2019 Assessment & Plan (11/19/2019 3:44 PM CDT): All prior testing, labs and consultations from neurologist reviewed personally in in room with Pt. We are waiting for upcoming consultation tomorrow with oncologist at [facility] for further evaluation and to determine any other etiologies causing his ongoing pain. I did advised to Cnt. With tapering corticosteroids as prior advised by Dr. Santos along with p.r.n. use of Tylenol for understanding S/Es of medication. Further direction pending upcoming consultation and follow-up in office as needed. Assessment & Plan (10/21/2019 9:28 AM CDT): Her normal neurologist expected given negative MRI and CT scan prior completed, detailed above, upcoming visit with neurologist to complete additional MRI of IAH w/ contrast this week for upcoming visit. Cnt. Tegretol, use of baclofen and p.r.n. Tylenol 3 breakthrough pain. Assessment & Plan (10/14/2019 12:28 PM CDT): Long discussion with Pt like today regarding his ongoing pain which I am suspicious of being atypical trigeminal neuralgia given ENT evaluation, negative CT imaging and ongoing sx. Education regarding suspected condition was discussed along with recommended treatment, recommended increasing carbamazepine to 4 mg b.i.d. advising Pt a typical timeframe to expect effects of medication. Baclofen use BID prn and only to take Tylenol #3 for break throughout pain. S/E of medications discussed with repeat BMP in 1 month to evaluate Na levels. ALEX consult top and advised Brain MRI w/ and w/o in the interim. Lumbar disc disease 06/18/2019 Hx of colonic polyps 12/24/2018 Overview (12/24/2018): Added automatically from request for surgery [id number] Squamous cell carcinoma of skin of face 12/08/19 19 Assessment & Plan (05/23/2024 12:42 PM BUS GIRL): Following with MD Rodriguez for management and surveillance. He reports pain has been under control with use of tramadol as well as gabapentin. He is taking gabapentin less frequently. Assessment & Plan (03/17/2023 1:26 PM CDT): MRI completed 10/26/22 1. Persistent enhancement in the region of foramen ovale on the left unchanged. Two. No suspicious cervical lymph nodes. Plan for follow up 04/2023 with repeat MRI. Iron deficiency anemia secon tyson to inadequate dietary iron intake 10/01/2018 Primary insomnia 10/01/2018 Overview (03/02/2020): Last Assessment & Plan: Notably D/T uncontrolled anxiety. Pt was advised to modify anxiety medications as discussed in clinic and gradually restart Lunesta with half a tablet daily in decreasing to 1 tablet daily thereafter. Script printed and given to patient's to hand carry to pharmacy. S/Es of Lunesta discussed. Re- evaluation here as scheduled or certainly sooner as needed Assessment & Plan (03/17/2023 6:32 PM CDT): Stable, no change in current medication regimen. Assessment & Plan (11/19/2019 3:38 PM CDT): Notably D/T uncontrolled anxiety. Pt was advised to modify anxiety medications as discussed in clinic and gradually restart Lunesta with half a tablet daily in decreasing to 1 tablet daily thereafter. Script printed and given to patient's to hand carry to pharmacy. S/Es of Lunesta discussed. Re-evaluation here as scheduled or certainly sooner as needed Allergic rhinitis 04/26/2018 Deviated nasal septum 04/26/2018 Nasal turbinate hypertrophy 04/26/2018 Gouty arthritis 11/20/2017 Osteoarthritis of both knees 05/31/2017 Assessment & Plan (05/31/2017 2:34 PM BUS GIRL): Patient will continue treatment plan as directed by orthopedist. His surgical corrective procedure has been placed on hold until he is able to successfully lower his BMI below 40. Sleep apnea with use of cont inuous positive airway pressure (CPAP) 04/26/2017 Benign prostatic hyperplasia with incomplete bladder emptying 04/26/2017 Assessment & Plan (05/23/2024 12:40 PM BUS GIRL): Continues finasteride and Flomax. Assessment & Plan (09/26/2023 4:49 PM CDT): Continue Flomax and finasteride. Denies any irritative symptoms or hematuria. Anxiety disorder 04/26/2017 Assessment & Plan (11/19/2019 3:42 PM CDT): Notable panic attack today in clinic which I sent with Pt for nearly 45 minutes discussing test findings so far, and importance of following up with oncologist, Dr. Oneill, tomorrow as scheduled regardless of testing so far to be unremarkable for metastatic SCC. He verbalized reassurance of this and gradually calmed down in office with me today. He also took his home prescription of alprazolam, with the present room. Pt agrees to focus more on the anxiety disorder, and understanding the correlation w/ uncontrolled anxiety causing poor sleep, poor appetite, panic attacks and food aversion. Pt was advised to increase sertraline to 150 mg daily, utilizing alprazolam half a tablet to a tablet t.i.d. as needed for uncontrolled anxiety. Addictive properties, S/Es and avoidance of driving while on medication. We will follow-up here as scheduled and certainly sooner with any ongoing sx of anxiety. Assessment & Plan (10/01/2018 3:07 PM CDT): Increasing Zoloft to 100 mg daily, Cnt. With current use of alprazolam q.h.s. With limited use of additional temazepam. Hopefully this can gain better control of anxiety within the next 1-2 weeks, they did agree to follow back up here in 1 month for re-evaluation or certainly sooner with any additional questions or concerns regarding medication changes. Mixed hyperlipidemia 04/26/2017 Difficulty controlling anger 04/26/2017 Sensorineural hearing loss, bilateral 08/30/2016 Overview (03/02/2020): Hearing aids Testicular hypofunction 11/01/2013 Overview (10/20/2016): TESTICULAR HYPOFUNC NEC Essential hypertension 02/25/2010 Assessment & Plan (09/26/2023 4:51 PM CDT): Blood pressure is well controlled. Following with Cardiology. Patient planning echocardiogram and Holter monitor with cardiology. Has had consistent shortness of breath and fatigue. Discussed component of deconditioning as well however recommended patient schedule testing as advised by Cardiology. Assessment & Plan (11/19/2019 3:35 PM CDT): Stable clinic. Will Cnt. Prior prescribed antihypertensives. Pt understands risk associated with not taking antihypertensives. Dash, low-fat diet, mild exercise as tolerated Assessment & Plan (10/21/2019 9:27 AM CDT): Normotensive in clinic given recent addition of corticosteroids. Cnt. To monitor, prior prescribed antihypertensives dash diet. Assessment & Plan (10/01/2018 3:03 PM CDT): Normotensive in office today. Cnt. Current hypertensives, dash diet, anti rhythmic diltiazem as previously prescribed, encouraged follow-up with recordist, schedule upcoming visit, upon leaving office today Assessment & Plan (09/05/2018 9:01 AM BUS GIRL): Controlled with additional HCTZ. Cnt. With current dosing of HCTZ along with losartan.Discussed ordering BMP in 2 wks Declined as ortho to check while hospitalized. Certainly we can follow through with ordering of labs once discharged not check. Dash, heart healthy diet. Increasing exercise tolerable considering the pain and postoperative today. Will F/u in november as scheduled for repeat labs and OV. Atrial fibrillation 02/25/2010 Assessment & Plan (03/03/2024 9:09 AM CDT): Reviewed rate control and montior respnose. Nio recurrence. Assessment & Plan (10/01/2018 3:04 PM CDT): NSR in office today stable rate in the 60s. Pt was encouraged to Cnt. current dosing of diltiazem, touch base with Dr. Leblanc's office when getting home today, which she was agreed to. I did offer to order a 48 hr event monitor on Pt heat strongly declined office today, states that he will move forward with this test if advised by recordist. Resolved Problems Problem Noted Date Diagnosed Date Resolved Date Essential tremor 09/26/2023 09/26/2023 Dizziness and giddiness 03/01/202209/14 Assessment & Plan (03/01/2022 7:38 AM CDT): VNG with Rental Manager at [facility] to rule out ear origin of Dizziness -- call with results Call if desire is to proceed with swallow study Morbid (severe) obesity due to excess calories 02/21/2022 09/26/2023 Body mass index 40.0-44.9, adult ([facility]) 02/21/2022 09/26/2023 BMI 38.0-38.9,adult 10/13/2020 09/26/19 24 Overview (10/13/2020): Reviewed Dexamethasone impact adn effect of BMI on exertion. 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 Recommending treatment with Augmentin, application of heat, analgesics and ingestion of sour foods, lemonade to assist with parotid drainage. Information regarding condition print out for Pt today in office. S/Es of medication discussed, indications to follow back up in clinic w/o improvement to consider CT imaging or look further into trigeminal neuralgia provided to Pt. Mild cognitive impairment 09/11/2019 Assessment & Plan (09/11/2019 2:12 PM BUS GIRL): MMSE score normal at 30 are 30. 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 Healthy diet, exercise, socialization and puzzles to prevent cognitive with decline. Pt was advised that we can re-evaluate the condition on as needed basis or certainly annually for reassurance. Atherosclerosis of vertebral artery 09/11/2019 09/11/2019 Assessment & Plan (09/11/2019 2:13 PM BUS GIRL): Head CT from 2018 evaluated given concerns of cognitive impairment and detailed above indicating vertebral arthrosclerosis. He is optimized on current therapy with aspirin, statin. Healthy diet, exercise also encouraged. Reassurance given, Pt was advised this is likely not to blame much for his cognitive impairment but will consider repeat imaging if indicated Chronic back pain greater th an 3 months duration 04/22/2019 11/14/2019 Overview (04/22/2019): Low back pain. Assessment & Plan (04/22/2019 1:17 PM CDT): Currently without radiculopathy. Pain is bilateral. Seeing pain management and scheduled for injection in May. Patient states he would be going on a trip soon and is concerned the pain may be exacerbated by that trip. We discussed use of Medrol dose pack as well as Flexeril for spasms. Patient verbalized understanding agreed to plan of care at this time will follow up in office with absolutely any changes including but not limited to paresthesias, increased pain, bowel or bladder changes. Viral URI 09/12/2017 11/16/2017 Assessment & Plan (09/12/2017 11:56 AM BUS GIRL): Humidification, fluids, and rest were recommended. Patient may take Tylenol as needed for fever, chills, and body aches. We discussed symptoms, duration , and treatment of viral illness. Symptom should run their course within 5-7 days. Patient has been encouraged to contact the office for follow-up with any change in, worsening, or non improvement in her condition. We discussed signs and symptoms of secondary infection and what would warrant antibiotic course. Morbid obesity 04/26/2017 11/14/2019 Assessment & Plan (05/31/2017 2:33 PM BUS GIRL): Patient is followed by Cardiology for a history of atrial fibrillation status post successful ablation. He has a history of hypertension and is on multiple medications for this as well. He is adamant he wants oral weight loss medication. I explained to patient the cardiac risk and risk of elevated heart rate and blood pressure. I do not feel the risk of medication outweighs the benefit. Patient was adamant that is when he came in for anyone a 60 day supply. Per his request I did discuss this further with his primary care provider. Primary care provider is in agreement risk of side effect of medication does not out weigh benefit. We prefer he follow a high- protein low-carbohydrate diet. This was discussed in detail. He is to increase his activity by beginning in a robotic exercise regimen. He has a recumbent bike at home he will begin with short intervals and billed as tolerated. He also has access to a pool at [employer] he can do some light weight lifting and walking in the pool should the recumbent bike cause knee discomfort. He verbalized understanding was in agreement with the plan of care although somewhat displeased he was not leaving with an oral weight loss medication. Gout involving toe 04/26/2017 9 Presbycusis 08/29/2016 11/16/2017 Benign paroxysmal positional vertigo 08/29/2016 11/16/2017 Inflamed seborrheic keratosis 06/18/2015 11/20/2017 Palpitations 03/19/2015 11/20/2017 Dyspnea on exertion 03/19/2015 11/14/19 20 Assessment & Plan (10/01/2018 3:06 PM CDT): All imaging and labs reviewed from ED visit which were unremarkable. Pt thinks the Protonix is helping the longevity of his sx aforementioned, I did advise him if he thinks is helping he can Cnt. Until next follow-up in office. Uncertain if the dyspnea is psychological D/T anxiety verses D/T arrhythmia ( paroxysmal atrial fib or SVT). As previously stated, he declined wanting to complete a event monitor, I did offer to complete a stress test , the Pt also declined this at this time. We will touch base with recordist and F/U here in 1 month for re-evaluation. 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 Staging:Clinical stage from 05/09/2018:Stage II(cT2, cN0, cM0) - Signed by Oliver Tidwell MD PhD on 05/09/2018 Overview (10/26/2017): Description: Skin Cancer Assessment & Plan (09/25/2019 3:29 PM CDT): Will double check on CT facial bones If CT scan is negative for new mass in the left parotid gland Aquaphor to ear 3 times daily for 2 weeks Obstructive sleep apnea syndrome 02/25/2010 11/16/2017 Immunizations Immunization Administration Dates Next Due Influenza, Quadrivalent, Hig h Dose, Preservative Free, Intrr 05/05/2023,05/25/2022,07/27/2021,04/07 Influenza, Split 05/17/2011 Influenza, Trivalent, High D ose, Split, Preservative Free, Intramuscular 05/23/2024,04/22/2019,05/21/2018,04/08,04/02/2013 Influenza, Trivalent, IM (MDV) 04/16/2009 Influenza, Unspecified 05/06/2011 Moderna SARS-CoV-2 Monovalen t Vaccination (12+ YRS) 06/01/2021,05/27/2021,08/28/2020,08/24,07/27/2020 Pneumococcal Conjugate PCV 13 09/10/2014 ,09/10/2014,10/01/2012,10/01 Pneumococcal Polysaccharide PPV23 03/17/2016,,05/30/2007 Tdap 05/30/2007 Social History Tobacco Use Types Packs/Day Years Used Date Smoking Tobacco: Never Smokeless Tobacco: Never Tobacco Cessation:Counseling Given: Not Answered Alcohol Use Standard Drinks/Week Comments Yes 1 [...] on file Legal Sex Male 11:53 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 Gender Identity Not on file Sexual Orientation Not on file Last Filed Vital Signs Vital Sign Reading Time Taken Comments Blood Pressure 168/82 11/01/2024 10:00 AM CDT Pulse 63 11/01/2024 10:00 AM CDT Temperature 36.8 C (98.2 F) 11/01/2024 9:12 AM CDT Respiratory Rate 20 11/01/2024 10:00 AM CDT Oxygen Saturation 96% 11/01/2024 10:00 AM CDT Inhaled Oxygen Concentration - - Weight 106.1 kg (234 lb) 11/01/2024 6:44 AM CDT Height 162.6 cm (5' 4 ) 11/01/2024 6:44 AM CDT Body Mass Index 40.17 11/01/2024 6:44 AM CDT Plan of Treatment Not on file Medical Devices Implanted Type Area Dry Kiln Operator Helper Device Identifier Shelf Expiration Date Model / Serial / Lot Penile Implant Penis Knee Replacements Knee Port Right: Chest [employer] [id number] Xcela 8fr 1.6mm 1 Lumen Power Injectable Attach Catheter Fill - [id number] Implanted:Qty: 1 on 04/29/2020 at [facility] [employer] 01/06/2025 [id number] / / [id number] [employer] Wesley Thinprofile Spherical Curvature Tapered Lower Edge [place] [id number] - [id number] Implanted:Qty: 1 on 11/01/2024 by Michele Garduno MD at [facility] Left: Eyelid [employer] Wesley [id number] 10/16/2027 [id number] / / [id number] Procedures Procedure Name Priority Date/Time Associated Diagnosis Comments INSERT EYELID WEIGHT 11/01/2024 8:22 AM CDT Brow ptosis, left Paralytic lagophthalmos, left BROWLIFT 11/01/2024 8:22 AM CDT Brow ptosis, left Paralytic lagophthalmos, left POC ISTAT Routine 11/01/2024 7:12 AM CDT GVF LIMITED/PTOSIS - OS - LEFT EYE Routine 10/01/2024 11:47 AM CDT Brow ptosis, left AUDBASE RESULTS 09/10/2024 3:02 PM BUS GIRL PSA SCREEN Routine 03/13/2023 12:30 PM CDT Prostate cancer screening COLONOSCOPY 01/28/2019 8:50 AM CDT HEPATITIS C SCREENING Routine 09/28/2016 from Last 3 Months or Most Recently Relevant to Health Maintenance Results * POC ISTAT (11/01/2024 7:12 AM CDT) K POC 3.8 3.3 - 4.9 mmol/L Comment: Interpretive Data This method is not able to assess for hemolysis, which may falsely increase potassium concentrations. If further testing is needed to evaluate this result, consider in-laboratory plasma potassium. Current Interpretive Data was last revised on 2022. POC Device Number [id number] SAIRA SMALLS POC Performer [id number] SAIRA SMALLS Blood 11/01/2024 7:12 AM CDT 11/01/2024 7:12 AM CDT Michele Garduno MD LAB BLOOD ORDERABLES Fin al Result [facility] [address] [facility]. Department [place] [address] * GVF Limited/Ptosis - OS - Left Eye (10/01/2024 11:47 AM CDT) Anatomical Region Laterality Modality Head Visual Field Narrative 10/01/2024 11:47 AM CDT Fixation was good. Cooperation was good. Reliability was good. Notes Reversible visual field loss from 16-29degrees Michele Garduno MD OPHTH VISUAL FIELD Final Result * AudBase Results (09/10/2024 3:02 PM BUS GIRL) Provider Scanning AUDIOLOGY SERVICES ORDERABLES Final Result * PSA screen (03/13/2023 12:30 PM CDT) PSA-Total 0.74 <=6.20 ng/mL [facility] ([facility]) Comment: Interpretive Data AGE SEX REFERENCE INTERVAL 0 minutes-150 years Female None 0 minutes-49 years Male None 50-59 years Male 0-3.90 60-69 years Male 0-5.40 70-79 years Male 0-6.20 80-150 years Male 0-6.20 The Maria M PSA Total assay procedure was used. Results from different manufacturers or methods may not be comparable. Serial testing should be performed using the same method. Current interpretive data last revised 21. Testing performed by: [facility], [address] [place] [address], [id number] Blood 03/13/2023 12:3 0 PM CDT 03/13/2023 6:57 PM CDT Heri Torres MD LAB BLOOD ORDERABLES Betty bowman Result [facility] ([place]) [facility] Department [place] [address] * COLONOSCOPY (01/28/2019 8:50 AM CDT) Anatomical Region Laterality Modality Other Narrative Procedure Note Lidya Bermudez MD - 01/28/2019 8:50 AM CDT [facility] Patient Name: Verónica Joshi Procedure Date: 01/28/2019 8:50 AM Date of : 1945 Admit Type: Outpatient Age: 73 Gender: Male Attending MD: Lidya Bermudez M.D. Room: [facility] ENDOSCOPY ROOM 1 Note Status: Finalized Patient Profile: 73 years old white male. His father history oflymphoma and colon cancer. Screening. Procedure: Colonoscopy Indications: Screening in patient at increased risk: Familyhistory of 1st-degree relative with colorectal cancer, Last colonoscopy: October 2013 Referring MD: Nicholas Santos M.D. Providers: Lidya Bermudez M.D. Impression: - Diverticulosis in the sigmoid colon and in the descending colon. - Internal hemorrhoids. - No specimens collected. Recommendation: - Repeat colonoscopy in 5 years for screeningpurposes. - Continue present medications. Medicines: Monitored Anesthesia Care Complications: No immediate complications. Estimated Blood Loss: Estimated blood loss: none. Procedure: Pre-Anesthesia Assessment: - Prior to the procedure, a History and Physical was performed, and patient medications and allergieswere reviewed. The patient's tolerance of previous anesthesia was also reviewed. The risks and benefitsof the procedure and the sedation options and riskswere discussed with the patient. All questions were answered, and informed consent was obtained. Prior Anticoagulants: The patient has taken no previous anticoagulant or antiplatelet agents. ASA Grade Assessment: II - A patient with mild systemicdisease. After reviewing the risks and benefits, the patientwas deemed in satisfactory condition to undergo the procedure. The benefits, risks and alternatives of theprocedure and sedation were discussed and informed consent was obtained. All questions were answered. Please referto the signed informed consent document in the medical record. The scope was passed under direct vision.The Pediatric Colonoscope [id number] was introduced through the anus and advanced to the the cecum, identified by appendiceal orifice andileocecal valve. The colonoscopy was performed without difficulty. The patient tolerated the procedurewell. The quality of the bowel preparation was good. Findings: The perianal and digital rectal examinations were normal. The cecum appeared normal. The colon (entire examined portion) appeared normal. No polyps and no mass lesions noted. Multiple small-mouthed diverticula were found in the sigmoid colonand descending colon, more prominent in the sigmoid colon. Internal hemorrhoids were found during retroflexion. The hemorrhoids were medium-sized. Electronically signed by Lidya Bermudez M.D. Lidya Bermudez M.D. 01/28/2019 9:42:38 AM Number of Addenda: 0 Note Initiated On: 01/28/2019 8:50 AM Procedure Code(s): --- Professional --- G0105, Colorectal cancer screening; colonoscopy on individual at high risk Diagnosis Code(s): --- Professional --- Z80.0, Family history of malignant neoplasm of digestive organs K64.8, Other hemorrhoids K57.30, Diverticulosis of large intestine without perforation orabscess without bleeding CPT copyright 2017 [employer] [employer]. All rights reserved. The codes documented in this report are preliminary and upon lamp cleaner street light reviewmay be revised to meet current compliance requirements. Recognized by the [place] [employer] for promoting quality in endoscopy Lidya Bermudez MD ENDOSCOPY PROCEDURES Final Result * HEPATITIS C SCREENING (09/28/2016) HEP C Normal Comment:NEGATIVE Historical Provider HEALTH MAINTENANCE Final Result from Last 3 Months or Most Recently Relevant to Health Maintenance Insurance MEDICARE [employer] Member Subscriber Plan / Payer (Ef fective 2011-Present) Name:Verónica Joshi Relation to Subscriber:Self Name:Verónica Joshi Payer ID:[id number] Group ID:[id number] Type:COMMERCIAL Address: [facility] [address] [place], [place] [employer] Member Subscriber Plan / Payer (Ef fective 2011-Present) Name:Verónica Joshi Relation to Subscriber:Self Name:Verónica Joshi Payer ID:[id number] Group ID:[id number] Type:COMMERCIAL Address: [facility] [address] [place], [place] MEDICARE [employer] MEDICARE [facility] Member Subscriber Plan / Payer (Ef fective 2011-Present) Name:Verónica Joshi Relation to Subscriber:Self Name:Verónica Joshi Payer ID:[id number] Group ID:[id number] Type:COMMERCIAL Address: [facility] [address] [place], [place] MEDICARE Advance Directives For more information, please contact: [phone] * Full Code (Latest Code Status on File) Date Activated Date Inactivated Comments 10/27/2020 10:36 AM 10/27/2020 5:48 PM * Full Code Date Activated Date Inactivated Comments 04/29/2020 7:42 AM 04/29/2020 1:38 PM * Full Code Date Activated Date Inactivated Comments 01/28/2019 9:00 AM 01/28/2019 2:20 PM * Full Code Date Activated Date Inactivated Comments 01/28/2019 9:00 AM 01/28/2019 9:00 AM Care Teams Staff Nurse Midwife Relationship Specialty Start Date End Date Heri Torres MD [address] [place] [address] PCP - General Family Medicine 01/09/20 Oliver Tidwell MD PhD [address] [place] [address] Radiation Oncologist Radiation Oncology 05/07/18 Osmar Echevarria MD [address] [address] Referring Physician Neurology 11/21/19 Bryce Real MD [facility] [address] [place] [address] Consulting Physician Radiation Oncology 11/21/19 Michele Garduno MD [address] DEPT OPHTHALMOLOGY, [facility] [address] [place] [address] Surgeon Ophthalmology 11/01/24
--- OUTSIDE RECORDS SUMMARY | 2024-11-19 18:45 | XMS_ITS | Encounter Summary ---
Author Organization [facility] [employer] [facility] Address [address] [place] [address] Phone Care Team Providers Care Telegraph Office Manager Name Role Phone Oliver Tidwell MD PhD Unavailable [phone] Osmar Echevarria MD Unavailable [phone] Bryce Real MD Unavailable [phone] Berta Myles MD Unavailable [phone] Heri Torres MD Primary Care Provider [phone] Michele Garduno MD Unavailable [phone] Encounter Details Date Type Department Care Team (Latest Contact Info) Description 02/19/2020 Orders Only [facility] Scanning, Provider Social History Tobacco Use Types Packs/Day Years Used Date Smoking Tobacco: Never Smokeless Tobacco: Never Alcohol Use Standard Drinks/Week Comments Yes 1 (1 standard drink = 0.6 oz pur e alcohol) 1 drink/wk PHQ-2 Answer Date Recorded PHQ-2 Score 0 12/11/2019 Sex and Gender Information Value Date Recorded Sex Assigned at Not on file 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 Gender Identity Not on file Sexual Orientation Not on file documented as of this encounter Plan of Treatment Not on file documented as of this encounter Procedures Procedure Name Priority Date/Time Associated Diagnosis Comments SCAN - LABS 02/19/2020 documented in this encounter Results * SCAN - LABS (02/19/2020) us Provider Scanning Final Result documented in this encounter Visit Diagnoses Not on filedocumented in this encounter Additional Health Concerns Infection Onset Date Last Indicated Resolved Time COVID: Suspected 12/18/2023 12/18/2023 12/18/2023 3:21 PM CDT documented as of this encounter Care Teams Telegraph Office Manager Relationship Specialty Start Date End Date Heri Torres MD [address] [place] [address] PCP - General Family Medicine 01/09/20 Oliver Tidwell MD PhD [address] [place] [address] Radiation Oncologist Radiation Oncology 05/07/18 Osmar Echevarria MD [address] [address] Referring Physician Neurology 11/21/19 Bryce Real MD [address] [place] [address] [address] [place] [address] Consulting Physician Radiation Oncology 11/21/19 Berta Myles MD [facility] [place] [address] Referring Physician Dermatology 11/21/19 07/05/20 Michele Garduno MD [address] DEPT OPHTHALMOLOGY, [facility] [address] [place] [address] Surgeon Ophthalmology 11/01/24 documented as of this encounter
--- OUTSIDE RECORDS SUMMARY | 2024-11-19 18:45 | XMS_ITS | Clinical Summary ---
Author Organization [facility] Address [address] [place] [address] Care Team Providers Care Master Fire Control Technician Name Role Phone Oliver Tidwell MD PhD Unavailable [phone] Osmar Echevarria MD Unavailable [phone] Bryce Real MD Unavailable [phone] Heri Torres MD Primary Care Provider [phone] Michele Garduno MD Unavailable [phone] Allergies Active Allergy Reactions Criticality Noted Date Comments Christopher Inhibitors Cough Low 04/28/2023 Adhesive Hives High 03/08/2018 Adhesive Tape-Silicones Blisters,Rash High 8 tape Hydrocodone Rash Medium 04/28/2023 Metoprolol Other (See comments) Low 08/01/2017 Patient does not know if allergic to beta blockers, found on allergy list from [facility] of possible allergy to beta [...] 05/23/2024 Assessment & Plan (05/23/2024 12:43 PM VINEYARD SUPERVISOR): Encouraged patient to gradually increase exercise/activity as [...] CHeck for cervical spine changes and will montiro ersponse. WIll complete with MRI of the brain [...] CDT): Recommended short course of NSAIDs, ibuprofen fyns-vma-ypcsehm for 1-2 weeks. Instructed patient not to [...] Chronic REESE (middle ear effusion), left 05/23/20 23 Assessment & Plan (09/26/2023 4:49 PM CDT): Following with ENT, no evidence of infection at this time. No drainage. Vitamin D deficiency due to chronic kidney disea se 04/18/2023 Encounter for annual wellness exam in Medicare p atient 03/17/2023 Assessment & Plan (05/23/2024 9:19 AM VINEYARD SUPERVISOR): Preventive exam; reviewed recommended preventive screenings and [...] AM CDT): Contniue f/u with Oncology in [place]. COntinues on regular surveillance. Personal history of [...] for upcoming consultation tomorrow with oncologist at [facility] for further evaluation and to determine any [...] (12/24/2018): Added automatically from request for surgery [id number] Squamous cell carcinoma of skin of face 12/08/19 19 Assessment & Plan (05/23/2024 12:42 PM VINEYARD SUPERVISOR): Following with MD Rodriguez for management and [...] 05/31/2017 Assessment & Plan (05/31/2017 2:34 PM VINEYARD SUPERVISOR): Patient will continue treatment plan as directed by orthopedist. His surgical corrective procedure has been placed on hold until he is able to successfully lower his BMI below 40. Sleep apnea with use of cont inuous positive airway pressure (CPAP) 04/26/2017 Benign prostatic hyperplasia with incomplete bladder emptying 04/26/2017 Assessment & Plan (05/23/2024 12:40 PM VINEYARD SUPERVISOR): Continues finasteride and Flomax. Assessment & Plan [...] diltiazem as previously prescribed, encouraged follow-up with director patient financial services, schedule upcoming visit, upon leaving office today Assessment & Plan (09/05/2018 9:01 AM VINEYARD SUPERVISOR): Controlled with additional HCTZ. Cnt. With current [...] forward with this test if advised by director patient financial services. Resolved Problems Problem Noted Date Diagnosed Date Resolved Date Essential tremor 09/26/2023 09/26/2023 Dizziness and giddiness 03/01/202209/14 Assessment & Plan (03/01/2022 7:38 AM CDT): VNG with Fruit Distributor at [facility] to rule out ear origin of Dizziness -- call with results Call if desire is to proceed with swallow study Morbid (severe) obesity due to excess calories 02/21/2022 09/26/2023 Body mass index 40.0-44.9, adult ([facility] 02/21/2022 09/26/2023 BMI 38.0-38.9,adult 10/13/2020 09/26/19 24 [...] 10/21/2019 Assessment & Plan (09/11/2019 2:09 PM VINEYARD SUPERVISOR): Acute parotitis per clinical examination. Recommending treatment [...] 09/11/2019 Assessment & Plan (09/11/2019 2:12 PM VINEYARD SUPERVISOR): MMSE score normal at 30 are 30. 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 Healthy diet, exercise, socialization and puzzles to prevent cognitive with decline. Pt was advised that we can re-evaluate the condition on as needed basis or certainly annually for reassurance. Atherosclerosis of vertebral artery 09/11/2019 09/11/2019 Assessment & Plan (09/11/2019 2:13 PM VINEYARD SUPERVISOR): Head CT from 2018 evaluated given concerns [...] 11/16/2017 Assessment & Plan (09/12/2017 11:56 AM VINEYARD SUPERVISOR): Humidification, fluids, and rest were recommended. Patient [...] 11/14/2019 Assessment & Plan (05/31/2017 2:33 PM VINEYARD SUPERVISOR): Patient is followed by Cardiology for a [...] also has access to a pool at [facility] he can do some light weight lifting [...] this time. We will touch base with director patient financial services and F/U here in 1 month for [...] weeks Obstructive sleep apnea syndrome 02/25/2010 11/16/2017 Encounters Date Type Department Care Team Description 11/19/2024 10:00 AM CDT Office Visit [facility] Ophthalmology [address] 2nd Floor, [address] [place] [phone] Michele Garduno MD Brow ptosis, left (Primary Dx) 11/12/2024 Telephone [facility] Ophthalmology [address] [facility] Health 6th [place] [address] Michele Garduno MD 11/11/2024 Telephone [facility] [address] [place] [address] Heri Torres MD Finasteride 1 mg Refill 11/01/2024 8:35 AM CDT - 11/01/2024 10:05 AM CDT Surgery [facility] Surgery Center Operating Room [address] [place] [address] [place] [phone] Michele Garduno MD Left direct brow lift 11/01/2024 8:22 AM CDT Anesthesia Event [facility] Surgery Center Operating Room [address] [place] [address] [place] [phone] Casper Estes MD Heimann, Liza Marie Ortillo, NP 11/01/2024 6:22 AM CDT - 11/01/2024 10:11 AM CDT Hospital Encounter [facility] Surgery Center Operating Room [address] [place] [address] [place] [address] Michele Garduno MD Brow ptosis, left [H57.812] (Primary Dx); Paralytic lagophthalmos, 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] Discharge Disposition: Discharge to home or self care 10/30/2024 1:45 PM CDT Therapy [facility] [place] [address] Iona Paz, PT Balance problem (Primary Dx) 10/30/2024 Telephone [facility] Ophthalmology [address] [facility] 6th [place] [phone] Michele Garduno MD 10/29/2024 11:10 AM CDT Office Visit [facility] Nephrology [address] [facility] Medicine 5th [place] [address] [place] [phone] Stage 3a chronic kidney disease (HCC) (Primary Dx); Essential hypertension; Iron deficiency anemia secondary to inadequate dietary iron intake; Benign prostatic hyperplasia with nocturia 10/24/2024 3:30 PM CDT Therapy [facility] Physical [place] [address] Iona Paz, PT Balance problem (Primary Dx) 10/21/2024 3:15 PM CDT Therapy [facility] [place] [address] Iona Paz, PT Vertigo (Primary Dx) 10/10/2024 Telephone [facility] [address] [place] [phone] Heri Torres MD Med Refill 10/10/2024 Telephone [facility] Cardiology [address] [facility] 8th [place] [address] [place] [address] Gorge Gupta MD Med Management 10/09/2024 Telephone [facility] Ophthalmology [address] 2[address] Floor, [address] [place] [address] Michele Garduno MD 10/08/2024 Telephone [facility] Ophthalmology [address] [facility] 6th [place] [phone] Michele Garduno MD 10/04/2024 7:45 AM CDT Therapy [facility] Physical Therapy [facility] [place] [address] Iona Paz PT Vertigo; Balance problem 10/04/2024 Telephone [facility] Ophthalmology [address] [address] [place] [address] Michele Garduno MD 10/04/2024 Plan of Care Documentation [facility] [place] [address] [place] [address] 10/01/2024 10:00 AM CDT Office Visit [facility] Ophthalmology [address] 2[address] Floor, [address] [place] [address] Michele Garduno MD Brow ptosis, left (Primary Dx); Paralytic lagophthalmos of left upper eyelid; Exposure keratopathy, left 09/26/2024 Telephone [facility] [address] [address] Fanta Allen NP 09/11/2024 9:15 AM VINEYARD SUPERVISOR Office Visit [facility] Dermatology [address] [facility] [address] [place] [address] John Castro MD Actinic keratosis (Primary Dx); History of nonmelanoma skin cancer; Seborrheic keratosis; Multiple melanocytic nevi 09/10/2024 3:00 PM VINEYARD SUPERVISOR Procedure visit [facility] Otolaryngology [facility] Medicine 11th [place] [address] [place] [phone] Ruby Aranda Au.D. Mixed conductive and sensorineural hearing loss of left ear with restricted hearing of right ear (Primary Dx) 08/23/2024 Orders Only [facility] [address] [address] Heri Torres MD 08/23/2024 Telephone [facility] [address] [address] Heri Torres MD Symptom Based Call from Last 3 Months Immunizations Immunization Administration Dates Next Due Influenza, Quadrivalent, Hig h Dose, Preservative Free, Intrr 05/05/2023,05/25/2022,07/27/2021,04/07 Influenza, Split 05/17/2011 Influenza, Trivalent, High D ose, Split, Preservative Free, Intramuscular 05/23/2024,04/22/2019,05/21/2018,04/08,04/02/2013 Influenza, Trivalent, IM (MDV) 04/16/2009 Influenza, Unspecified 05/06/2011 Moderna SARS-CoV-2 Monovalen t Vaccination (12+ YRS) 06/01/2021,05/27/2021,08/28/2020,08/24,07/27/2020 Pneumococcal Conjugate PCV 13 09/10/2014 ,09/10/2014,10/01/2012,10/01 Pneumococcal Polysaccharide PPV23 03/17/2016,,05/30/2007 Tdap 05/30/2007 Surgical History Surgery Date Site/Laterality Comments PENILE PROSTHESIS IMPLANT 07/17/2008 - 07/16/2009 penile implant ATRIAL ABLATION SURGERY 07/17/2009 - 07/16/2010 REPLACEMENT TOTAL KNEE 07/17/2018 - 07/16/2019 Bilateral 2018 MENISCUS SURGERY TONSILLECTOMY 07/17/1956 - 07/16/1957 ROTATOR CUFF REPAIR 07/17/2007 - 07/16/2008 CYST REMOVAL scalp COLONOSCOPY 11/01/2013 PORT PLACEMENT CHEST >5 YEARS 04/29/2020 N/A CARDIAC CATHETERIZATION 07/17/2020 - 07/16/2021 LUMBAR PUNCTURE WO INJECTION , DIAGNOSTIC 11/11/2019 N/A COLONOSCOPY 07/17/2019 - 07/16/2020 PENILE PROSTHESIS IMPLANT 07/17/2009 - 07/16/2010 Medical History Medical History Date Comments Hx Other Medical restless leg sy ndrome Hx Other Medical hypogonadism Hx Other Medical sleep apnea/ cp ap HL (hearing loss) SVT (supraventricular tachycardia) Colon polyp Hyperlipidemia Hypertension Skin cancer Squamous and bas al cell Atrial fibrillation (HCC) SVT re versed with ablation Atrial fibrillation (HCC) Anxiety Chronic kidney disease CA med ca used issues, dc'd and now on radiation therapy Family History Medical History Relation Name Comments Atrial fibrillation Cousin Atrial F ibrillation; Colon cancer Father Lymphoma Father Cancer -lymphom a; COPD Mother Cancer Paternal Grandfather Cancer Paternal Grandmother Diabetes Neg Hx Diabetes mellit us; Relation Name Status Comments Brother (Age 12 days) Cousin Father (Age 78) Mother (Age 72) Paternal Grandfather Paternal Grandmother Social History Tobacco Use Types Packs/Day Years [...] on file Legal Sex Male 11:53 PM VINEYARD SUPERVISOR Gender Identity Not on file Sexual Orientation Not on file Obstetrics History Last Filed Vital Signs Vital Sign Reading [...] 11/01/2024 6:44 AM CDT Plan of Treatment Health Maintenance Due Date Last Done Comments Hepatitis B Screening 1963 Zoster Vaccine (1 of 2) 1965 DTaP/Tdap/Td Vaccine (2 - Td or Tdap) 05/30/2017 05/30/2007 Prostate Cancer Screening-PSA 03/13/2024, 07/27/2021, 11/26/2019, Additional history exists Covid-19 Vaccine (2 5 season) 2024 06/01/2021, 05/27/2021, 08/28/2020, Additional history exists Depression Screening 05/23/2025 05/23/2024, 02/21/2024, 12/18/2023, Additional history exists Well Visit 65+ 05/23/2025 05/23/2024, 07/2022, 02/21/2022, Additional history exists Fall Risk Assessment 11/01/2025 11/01/2024, 05/28/2024, 05/23/2024, Additional history exists Pneumococcal vaccine 65+ Completed 016, 09/10/2014, 09/10/2014, Additional history exists Hepatitis C Screening Completed 09/28/2016 Colon Cancer Screening-CT Colonography Discontinued 01/28/2019, 11/01/2013, 11/01/2013 Colon Cancer Screening-Colonoscopy Discontinued 01/28/2019, 11/01/2013, 11/01/2013 Colon Cancer Screening-DNA Stool Discontinued 01/28/2019, 11/01/2013, 11/01/2013 Colon Cancer Screening-FIT Discontinued 01/28, 11/17/2017, 11/01/2013, Additional history exists Colon Cancer Screening-FOBT Discontinued 01/14, 11/01/2013, 11/01/2013 Colon Cancer Screening-Sigmoidoscopy Discontinued 01/28/2019, 11/01/2013, 11/01/2013 Colorectal Cancer Screening Discontinued Influenza Vaccine Completed 05/23/2024, , 05/25/2022, Additional history exists Medical Devices Implanted Type Area Account Installation Specialist Device Identifier Shelf Expiration Date Model / Serial / Lot Penile Implant Penis Knee Replacements Knee Port Right: Chest [employer] [id number] Xcela 8fr 1.6mm 1 Lumen Power Injectable Attach Catheter Fill - [id number] Implanted:Qty: 1 on 04/29/2020 at [facility] Ang[employer] 01/06/2025 [id number] [employer] Thinprofile Spherical Curvature Tapered Lower Edge [place] [id number] - [id number] Implanted:Qty: 1 on 11/01/2024 by Michele Garduno MD at [facility] Left: Eyelid [employer] [id number] 10/16/2027 [id number] / / [id number] Procedures Procedure Name Priority Date/Time Associated Diagnosis Comments INSERT EYELID WEIGHT 11/01/2024 8:22 AM CDT Brow ptosis, left Paralytic lagophthalmos, left BROWLIFT 11/01/2024 8:22 AM CDT Brow ptosis, left Paralytic lagophthalmos, left POC ISTAT Routine 11/01/2024 7:12 AM CDT GVF LIMITED/PTOSIS - OS - LEFT EYE Routine 10/01/2024 11:47 AM CDT Brow ptosis, left AUDBASE RESULTS 09/10/2024 3:02 PM VINEYARD SUPERVISOR PSA SCREEN Routine 03/13/2023 12:30 PM CDT Prostate cancer screening COLONOSCOPY 01/28/2019 8:50 AM CDT HEPATITIS C SCREENING Routine 09/28/2016 from Last 3 Months or Most Recently Relevant to Health Maintenance Results * POC ISTAT (11/01/2024 7:12 AM CDT) [facility] K POC 3.8 3.3 - 4.9 mmol/L Comment: Interpretive Data This method is not able to assess for hemolysis, which may falsely increase potassium concentrations. If further testing is needed to evaluate this result, consider in-laboratory plasma potassium. Current Interpretive Data was last revised on 2022. POC Device Number [id number] SAIRA DUFFY POC Performer [id number] SAIRA SMALLS Blood 11/01/2024 7:12 AM CDT 11/01/2024 7:12 AM CDT Michele Garduno MD LAB BLOOD ORDERABLES Fin al Result SAIRA [facility] [address] [facility]. Department [place] [address] * GVF Limited/Ptosis - OS - Left Eye (10/01/2024 11:47 AM CDT) Anatomical Region Laterality Modality Head Visual Field Narrative 10/01/2024 11:47 AM CDT Fixation was good. Cooperation was good. Reliability was good. Notes Reversible visual field loss from 16-29degrees Michele Garduno MD OPHTH VISUAL FIELD Final Result * AudBase Results (09/10/2024 3:02 PM VINEYARD SUPERVISOR) Provider Scanning AUDIOLOGY SERVICES ORDERABLES Final Result * PSA screen (03/13/2023 12:30 PM CDT) PSA-Total 0.74 <=6.20 ng/mL SAIRA GARZA (QUINN) Comment: Interpretive Data AGE SEX REFERENCE [...] data last revised 21. Testing performed by: [facility], [address] [place] [address], [place]., [address] Blood 03/13/2023 12:3 0 PM CDT 03/13/2023 6:57 PM CDT Heri Torres MD LAB BLOOD ORDERABLES Betty l Result SAIRA GARZA (QUINN[address] Department [place] [address] * COLONOSCOPY (01/28/2019 8:50 AM CDT) Anatomical Region Laterality Modality Other Narrative Procedure Note Lidya Bermudez MD - 01/28/2019 8:[address] [facility] Patient Name: Verónica Joshi [...] passed under direct vision.The Pediatric Colonoscope [id number] was introduced through the anus and advanced [...] perforation orabscess without bleeding CPT copyright 2017 [employer]. All rights reserved. The codes documented in this report are preliminary and upon face painter reviewmay be revised to meet current compliance requirements. Recognized by the [place] [employer] for promoting quality in endoscopy Lidya Bermudez MD ENDOSCOPY PROCEDURES Final Result * HEPATITIS C SCREENING (09/28/2016) HEP C Normal Comment:NEGATIVE Historical Provider HEALTH MAINTENANCE Final Result from Last 3 Months or Most Recently Relevant to Health Maintenance Insurance MEDICARE [employer] [place] [employer] [place] MEDICARE [facility] [place] Member Subscriber Plan / Payer ( fective 2011-Present) Name:Joshi Verónica Meraz Relation to Subscriber:Self Name:Verónica Joshi Payer ID:[id number] Group ID:Not on file Type:COMMERCIAL Address: [facility] [address] [place], [place] MEDICARE [facility]ANS [facility] [place] MED[place] Advance Directives For more information, please contact: [phone] * Full Code (Latest Code Status on File) Date Activated Date Inactivated Comments 10/27/2020 10:36 AM 10/27/2020 5:48 PM * Full Code Date Activated Date Inactivated Comments 04/29/2020 7:42 AM 04/29/2020 1:38 PM * Full Code Date Activated Date Inactivated Comments 01/28/2019 9:00 AM 01/28/2019 2:20 PM * Full Code Date Activated Date Inactivated Comments 01/28/2019 9:00 AM 01/28/2019 9:00 AM Care Teams Master Fire Control Technician Relationship Specialty Start Date End Date Heri Torres MD [address] [place] [address] PCP - General Family Medicine 01/09/20 Oliver Tidwell MD PhD [address] [place] [address] Radiation Oncologist Radiation Oncology 05/07/18 Osmar Echevarria MD [address] [place] [id number] Referring Physician Neurology 11/21/19 Bryce Real MD [address] [facility] [address] [place] [address] Consulting Physician Radiation Oncology 11/21/19 Michele Garduno MD [address] DEPT OPHTHALMOLOGY, [address] [address] Surgeon Ophthalmology 11/01/24
--- OUTSIDE RECORDS SUMMARY | 2024-11-19 18:45 | XMS_ITS | Encounter Summary ---
Author Organization [facility] Address [address] [place] [address] Phone Care Team Providers Care Software Licensing Analyst Name Role Phone Nicholas Santos MD Primary Care Provider [phone] Oliver Tidwell MD PhD Unavailable [phone] Simi Nolen LPN Unavailable Unavailabl e Edna Desouza MA Unavailable [phone] Osmar Echevarria MD Unavailable [phone] Bryce Real MD Unavailable [phone] Berta Myles MD Unavailable [phone] Heri Torres MD Primary Care Provider [phone] Michele Garduno MD Unavailable [phone] Encounter Details Date Type Department Care Team (Late st Contact Info) Description 11/16/2017 Orders Only [facility] ProviderShirley MD [facility] [place] [address] Social History Tobacco Use Types Packs/Day Years Used Date Smoking Tobacco: Never Smokeless Tobacco: Never Alcohol Use Standard Drinks/Week Comments Yes 0 (1 standard drink = 0.6 oz pur e alcohol) Sex and Gender Information Value Date Recorded Sex Assigned at Not on file Legal Sex Male 11:53 PM GRINDER GEAR Gender Identity Not on file Sexual Orientation Not on file documented as of this encounter Plan of Treatment Not on file documented as of this encounter Procedures Procedure Name Priority Date/Time Associated Diagnosis Comments DISCHARGE LABORATORY CUMULATIVE REPORT 11/17/2017 12:00 AM CDT CLINICAL PATHOLOGY REPORT 11/16/2017 12:00 AM CDT CLINICAL PATHOLOGY REPORT 11/16/2017 12:00 AM CDT DISCHARGE LABORATORY CUMULATIVE REPORT 11/16/2017 12:00 AM CDT documented in this encounter Results * DISCHARGE LABORATORY CUMULATIVE REPORT (11/17/2017 12:00 AM CDT) Narrative 11/17/2017 12:00 AM CDT Ordered by an unspecified provider. [facility] Provider MD LAB BLOOD ORDERABLES Betty l Result * CLINICAL PATHOLOGY REPORT (11/16/2017 12:00 AM CDT) Narrative 11/16/2017 12:00 AM CDT Ordered by an unspecified provider. [facility] Provider MD LAB PATHOLOGY ORDERABLES Final Result * DISCHARGE LABORATORY CUMULATIVE REPORT (11/16/2017 12:00 AM CDT) Narrative 11/16/2017 12:00 AM CDT Ordered by an unspecified provider. [facility] Provider MD LAB BLOOD ORDERABLES Betty l Result * CLINICAL PATHOLOGY REPORT (11/16/2017 12:00 AM CDT) Narrative 11/16/2017 12:00 AM CDT Ordered by an unspecified provider. [facility] Provider MD LAB PATHOLOGY ORDERABLES Final Result documented in this encounter Visit Diagnoses Not on filedocumented in this encounter Additional Health Concerns Infection Onset Date Last Indicated Resolved Time COVID: Suspected 12/18/2023 12/18/2023 12/18/2023 3:21 PM CDT documented as of this encounter Care Teams Software Licensing Analyst Relationship Specialty Start Date End Date Nicholas Santos MD PCP - General 10/14/16 01/08/20 Heri Torres MD [address] [place] [address] PCP - General Family Medicine 01/09/20 Oliver Tidwell MD PhD [address] [place] [address] Radiation Oncologist Radiation Oncology 05/07/18 Simi Nolen LPN [address] [place] [address] Investigative Reporter 10/01/18 10/02/18 Edna Desouza [address] [address] ACO Care Supervisor [employer] 10/21/19 10/24/19 Osmar Echevarria MD [address] [place] [address] Referring Physician Neurology 11/21/19 Bryce Real MD [address] [place] [address] [address] [place] [address] Consulting Physician Radiation Oncology 11/21/19 Berta Myles MD [address] [place] [address] Referring Physician Dermatology 11/21/19 07/05/20 Michele Garduno MD [address] DEPT OPHTHALMOLOGY, [address] [address] Surgeon Ophthalmology 11/01/24 documented as of this encounter
--- OUTSIDE RECORDS SUMMARY | 2024-11-19 18:45 | XMS_ITS ---
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 Instructed patient not to [...] 03/17/2023 Assessment & Plan (05/23/2024 9:19 AM LAN ANALYST): Preventive exam; reviewed recommended preventive screenings and [...] AM CDT): Contniue f/u with Oncology in [place]. COntinues on regular surveillance. Personal history of [...] for upcoming consultation tomorrow with oncologist at [facility] for further evaluation and to determine any [...] (12/24/2018): Added automatically from request for surgery [id number] Squamous cell carcinoma of skin of face 12/08/19 19 Assessment & Plan (05/23/2024 12:42 PM LAN ANALYST): Following with MD Rodriguez for management and [...] 05/31/2017 Assessment & Plan (05/31/2017 2:34 PM LAN ANALYST): Patient will continue treatment plan as directed by orthopedist. His surgical corrective procedure has been placed on hold until he is able to successfully lower his BMI below 40. Sleep apnea with use of cont inuous positive airway pressure (CPAP) 04/26/2017 Benign prostatic hyperplasia with incomplete bladder emptying 04/26/2017 Assessment & Plan (05/23/2024 12:40 PM LAN ANALYST): Continues finasteride and Flomax. Assessment & Plan [...] diltiazem as previously prescribed, encouraged follow-up with revenue enforcement collection agent, schedule upcoming visit, upon leaving office today Assessment & Plan (09/05/2018 9:01 AM LAN ANALYST): Controlled with additional HCTZ. Cnt. With current [...] forward with this test if advised by revenue enforcement collection agent. Current Treatment and Therapy Plans No current plan information found. 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 Automatic discontinuation of dormant plans Rober Mckeon MD Lifetime Dose Tracking * Chemical Lifetime Dose Automatic Entry Manual Entr y Fluoro Time 0.1 minutes 0.1 minutes 0 minutes Air kerma at the reference point (Ka,r) 1,514.8 mGy 0 mGy 1,514.8 mGy DLP 2,566 mGycm 2,566 mGycm 0 mGycm Resolved Problems Problem Noted Date Diagnosed Date Resolved Date Essential tremor 09/26/2023 09/26/2023 Dizziness and giddiness 03/01/202209/14 Assessment & Plan (03/01/2022 7:38 AM CDT): VNG with Golf Course Patroller at [facility] to rule out ear origin of Dizziness -- call with results Call if desire is to proceed with swallow study Morbid (severe) obesity due to excess calories 02/21/2022 09/26/2023 Body mass index 40.0-44.9, adult ([facility]) 02/21/2022 09/26/2023 BMI 38.0-38.9,adult 10/13/2020 09/26/19 24 [...] 10/21/2019 Assessment & Plan (09/11/2019 2:09 PM LAN ANALYST): Acute parotitis per clinical examination. Recommending treatment [...] 09/11/2019 Assessment & Plan (09/11/2019 2:12 PM LAN ANALYST): MMSE score normal at 30 are 30. 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 Healthy diet, exercise, socialization and puzzles to prevent cognitive with decline. Pt was advised that we can re-evaluate the condition on as needed basis or certainly annually for reassurance. Atherosclerosis of vertebral artery 09/11/2019 09/11/2019 Assessment & Plan (09/11/2019 2:13 PM LAN ANALYST): Head CT from 2018 evaluated given concerns [...] 11/16/2017 Assessment & Plan (09/12/2017 11:56 AM LAN ANALYST): Humidification, fluids, and rest were recommended. Patient [...] 11/14/2019 Assessment & Plan (05/31/2017 2:33 PM LAN ANALYST): Patient is followed by Cardiology for a [...] also has access to a pool at [place] he can do some light weight lifting [...] this time. We will touch base with revenue enforcement collection agent and F/U here in 1 month for [...]
--- OUTSIDE RECORDS SUMMARY | 2024-11-19 18:45 | XMS_ITS | Encounter Summary ---
Author Organization [facility] Address [address] [place] [address] Phone Care Team Providers Care Water Purifier Operator Name Role Phone Nicholas Santos MD Primary Care Provider [phone] Oliver Tidwell MD PhD Unavailable [phone] Simi Nolen LPN Unavailable Unavailabl e Edna Desouza MA Unavailable [phone] Osmar Echevarria MD Unavailable [phone] Bryce Real MD Unavailable [phone] Berta Myles MD Unavailable [phone] Heri Torres MD Primary Care Provider [phone] Michele Garduno MD Unavailable [phone] Encounter Details Date Type Department Care Team (Late st Contact Info) Description 10/27/2017 Orders Only [facility] ProviderShirley MD [facility] [place] [address] Social History Tobacco Use Types Packs/Day Years Used Date Smoking Tobacco: Never Smokeless Tobacco: Never Alcohol Use Standard Drinks/Week Comments Yes 0 (1 standard drink = 0.6 oz pur e alcohol) Sex and Gender Information Value Date Recorded Sex Assigned at Not on file Legal Sex Male 11:53 PM AUTOCUTTER Gender Identity Not on file Sexual Orientation Not on file documented as of this encounter Plan of Treatment Not on file documented as of this encounter Procedures Procedure Name Priority Date/Time Associated Diagnosis Comments DISCHARGE LABORATORY CUMULATIVE REPORT 10/27/2017 12:00 AM CDT documented in this encounter Results * DISCHARGE LABORATORY CUMULATIVE REPORT (10/27/2017 12:00 AM CDT) Narrative 10/27/2017 12:00 AM CDT Ordered by an unspecified provider. us Historical Provider LAB BLOOD ORDERABLES Betty l Result documented in this encounter Visit Diagnoses Not on filedocumented in this encounter Additional Health Concerns Infection Onset Date Last Indicated Resolved Time COVID: Suspected 12/18/2023 12/18/2023 12/18/2023 3:21 PM CDT documented as of this encounter Care Teams Water Purifier Operator Relationship Specialty Start Date End Date Nicholas Santos MD PCP - General 10/14/16 01/08/20 Heri Torres MD [address] [place] [address] PCP - General Family Medicine 01/09/20 Oliver Tidwell MD PhD [address] [place] [address] Radiation Oncologist Radiation Oncology 05/07/18 Simi Nolen LPN [address] [place] [address] Motorcycle Designer 10/01/18 10/02/18 Edna Desouza MA [address] [place] [address] [place] [address] ACO Care Electrical Systems Designer 10/21/19 10/24/19 Osmar Echevarria MD [address] [address] Referring Physician Neurology 11/21/19 Bryce Real MD [address] [facility] [address] [place] [address] Consulting Physician Radiation Oncology 11/21/19 Berta Myles MD [address] [place] [address] Referring Physician Dermatology 11/21/19 07/05/20 Michele Garduno MD [address] DEPT OPHTHALMOLOGY, [address] [address] Surgeon Ophthalmology 11/01/24 documented as of this encounter
--- OUTSIDE RECORDS SUMMARY | 2024-11-19 18:45 | XMS_ITS | Encounter Summary ---
Author Organization [facility] Address [address] [place] [address] Phone Care Team Providers Care Buttermaker Continuous Churn Name Role Phone Nicholas Santos MD Primary Care Provider Oliver Tidwell MD PhD Unavailable [phone] Simi Nolen LPN Unavailable Unavailabl e Edna Desouza MA Unavailable [phone] Osmar Echevarria MD Unavailable [phone] Bryce Real MD Unavailable Berta Myles MD Unavailable [phone] Heri Torres MD Primary Care Provider [phone] Michele Garduno MD Unavailable [phone] Encounter Details Date Type Department Care Team (Late st Contact Info) Description 07/20/2018 Telephone [facility] Cardiology [address] [facility] 8th [place] [address] [place] [address] Gorge Gupta MD [address] [facility] [address] [place] [address] Social History Tobacco Use Types Packs/Day Years Used Date Smoking Tobacco: Never Smokeless Tobacco: Never Alcohol Use Standard Drinks/Week Comments Yes 1 (1 standard drink = 0.6 oz pur e alcohol) 1 drink/wk Sex and Gender Information Value Date Recorded Sex Assigned at Not on file Legal Sex Male 11:53 PM MECHANICAL ENGINEERING COOP Gender Identity Not on file Sexual Orientation Not on file documented as of this encounter Plan of Treatment Not on file documented as of this encounter Visit Diagnoses Not on filedocumented in this encounter Additional Health Concerns Infection Onset Date Last Indicated Resolved Time COVID: Suspected 12/18/2023 12/18/2023 12/18/2023 3:21 PM CDT documented as of this encounter Care Teams Buttermaker Continuous Churn Relationship Specialty Start Date End Date Nicholas Santos MD PCP - General 10/14/16 01/08/20 Heri Torres MD [address] [place] [address] PCP - General Family Medicine 01/09/20 Oliver Tidwell MD PhD [address] [place] [address] Radiation Oncologist Radiation Oncology 05/07/18 Simi Nolen LPN [address] [place] [address] Supervisor Anodizing 10/01/18 10/02/18 Edna Desouza MA [address] [place] [address] [address] [place] [address] ACO Care Personal Care Attendant 10/21/19 10/24/19 Osmar Echevarria MD [address] [address] Referring Physician Neurology 11/21/19 [place] [address] [place] [address] [address] [place] [address] Consulting Physician Radiation Oncology 11/21/19 Berta Myles MD [address] [place] [address] Referring Physician Dermatology 11/21/19 07/05/20 Michele Garduno MD [address] DEPT OPHTHALMOLOGY, [address] [address] Surgeon Ophthalmology 11/01/24 documented as of this encounter
--- OUTSIDE RECORDS SUMMARY | 2024-11-19 18:45 | XMS_ITS | Clinical Summary ---
Author Organization [facility] Address [address] [place] [address] Phone Care Team Providers Care Application Systems Administrator Name Role Phone Nicholas Santos MD Primary Care Provider [phone] Allergies Active Allergy Reactions Criticality Noted Date Comments Christopher Inhibitors Other (see Comments) 10/23/2019 cough Hydrocodone Rash 10/16/2019 Other-Food Allergen (Not Fou nd In Search) Rash 10/23/2019 tape Medications ALPRAZolam (XANAX) 1 MG Tablet Take 1 mg by mouth nightly as needed. Active aspirin EC 81 MG Tablet Delayed Response Take 81 mg by mouth daily. Active atorvastatin (LIPITOR) 20 MG Tablet Take 20 mg by mouth daily. Active dilTIAZem (DILTIAZEM CD) 180 MG CAPSULE SR 24 HR Take 180 mg by mouth daily. Active ESZOPICLONE PO Take 3 mg by mouth daily. Active Fluticasone Furoate 27.5 MCG/SPRAY Suspension 2 Puffs by Nasal route daily. Active hydroCHLOROthia zide 12.5 MG Tablet Take by mouth daily. Active losartan (COZAAR) 100 MG Tablet Take 100 mg by mouth daily. Active meloxicam (MOBIC) 15 MG Tablet Take 15 mg by mouth daily. Active sertraline (ZOLOFT) 100 MG Tablet Take 100 mg by mouth daily. Active oxybutynin (DITROPAN-XL) 10 MG TABLET SR 24 HR Take 10 mg by mouth daily. Active tamsulosin (FLOMAX) 0.4 MG Capsule Take 0.4 mg by mouth daily. Active traMADol (ULTRAM) 50 MG Tablet Take 50 mg by mouth every 6 hours as needed. Active Multiple Vitamins-Minera ls (MULTIVITAMIN PO) Take by mouth. Active acetaminophen-c odeine (TYLENOL/CODEIN E #3) 300-30 MG Tablet Take 1-2 Tabs by mouth every 4 hours as needed. Active baclofen (LIORESAL) 20 MG Tablet Take 20 mg by mouth 3 times daily. Active PREDNISONE PO Take by mouth. Active Ondansetron HCl (ZOFRAN PO) Take by mouth. 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 Immunizations Immunization Administration Dates Next Due Covid-19, Mrna, Lnp-s, PF, 1 00 mcg/0.5 mL Dose (Moderna) 07/27/2020 Family History Medical History Relation Name Comments Cancer Father Chronic Obstructive Pulmonary Disease Mother Relation Name Status Comments Father Mother Social History Tobacco Use Types Packs/Day Years Used Date Smoking Tobacco: Never Smokeless Tobacco: Never Alcohol Use Standard Drinks/Week Comments Yes 0 (1 standard drink = 0.6 oz pur e alcohol) occasional Sex and Gender Information Value Date Recorded Sex Assigned at Not on file Legal Sex Male 10:44 PM CDT Gender Identity Not on file Sexual Orientation Not on file Last Filed Vital Signs Vital Sign Reading Time Taken Comments Blood Pressure 152/74 11/11/2019 12:59 PM CDT Pulse 67 11/11/2019 12:59 PM CDT Temperature 36.4 C (97.5 F) 11/11/2019 12:20 PM CDT Respiratory Rate 16 11/11/2019 12:59 PM CDT Oxygen Saturation 96% 11/11/2019 12:59 PM CDT Inhaled Oxygen Concentration - - Weight 102.1 kg (225 lb) 11/11/2019 8:53 AM CDT Height 170.2 cm (5' 7 ) 11/11/2019 8:53 AM CDT Body Mass Index 35.24 11/11/2019 8:53 AM CDT Plan of Treatment Health Maintenance Due Date Last Done Comments TdaP Immunization 1945 Pneumococcal Immunization (5 0+ years) (1 of 1 - PCV) 1996 Zoster Immunization (1 of 2) 1996 Respiratory Syncytial Virus (RSV) Immunization (Adult) (1 - 1-dose 75+ series) 2021 Influenza Immunization (#1) 2024 04/22/2019 SARS-COV-2 Immunization ( season) 2024 05/27/2021, 08/28/2020, 07/27/2020 Hepatitis C Virus (HCV) Screening Completed 01/22/2020 Hepatitis B Immunization Aged Out No longer eligible based on patient's age to complete this topic Meningococcal Immunization (ACWY) Aged Out No longer eligible b ased on patient's age to complete this topic Rotavirus Immunization Aged Out No lo nger eligible based on patient's age to complete this topic Insurance [employer]IC[employer] Care Teams Application Systems Administrator Relationship Specialty Start Date End Date Nicholas Santos MD [address] [place] [address] [place] [address] PCP - General Internal Medicine 11/06/19
--- OUTSIDE RECORDS SUMMARY | 2024-11-19 18:45 | XMS_ITS | Encounter Summary ---
Author Organization [facility] Address [address] [place] [address] Phone Care Team Providers Care Practice Or Student Teacher Name Role Phone Nicholas Santos MD Primary Care Provider [phone] Oliver Tidwell MD PhD Unavailable [phone] Simi Nolen LPN Unavailable Unavailabl e Edna Desouza MA Unavailable [phone] Osmar Echevarria MD Unavailable [phone] Bryce Real MD Unavailable [phone] Breta Myles MD Unavailable [phone] Heri Torres MD Primary Care Provider [phone] Michele Garduno MD Unavailable [phone] Reason for Visit * Reason Onset Date Comments SOONER APPOINTMENT 01/19/2018 Pt called and stated that he have a hard lump on his (r) ear and wanted to be soon. Encounter Details Date Type Department Care Team (Late st Contact Info) Description 01/19/2018 Telephone [facility] Dermatology [address] [facility] [address] [place] [address] John Castro MD [address] [facility] [address] [place] [address] SOONER APPOINTMENT (Pt called and stated that he have a hard lump on his (r) ear and wanted to be soon.) Social History Tobacco Use Types Packs/Day Years Used Date Smoking Tobacco: Never Smokeless Tobacco: Never Alcohol Use Standard Drinks/Week Comments Yes 0 (1 standard drink = 0.6 oz pur e alcohol) Sex and Gender Information Value Date Recorded Sex Assigned at Not on file Legal Sex Male 11:53 PM WASTE RECLAIMER Gender Identity Not on file Sexual Orientation Not on file documented as of this encounter Plan of Treatment Not on file documented as of this encounter Visit Diagnoses Not on filedocumented in this encounter Additional Health Concerns Infection Onset Date Last Indicated Resolved Time COVID: Suspected 12/18/2023 12/18/2023 12/18/2023 3:21 PM CDT documented as of this encounter Care Teams Practice Or Student Teacher Relationship Specialty Start Date End Date Nicholas Santos MD PCP - General 10/14/16 01/08/20 Heri Torres MD [address] [place] [address] PCP - General Family Medicine 01/09/20 Oliver Tidwell MD PhD [address] [place] [address] Radiation Oncologist Radiation Oncology 05/07/18 Simi Nolen LPN [address] [place] [address] Certified Medical Dosimetrist 10/01/18 10/02/18 Edna Desouza MA [address] [place] [address] [address] [place] [address] ACO Care Oil Paint Shader 10/21/19 10/24/19 Osmar Echevarria MD [address] [address] Referring Physician Neurology 11/21/19 Bryce Real MD [address] [facility] # [address] [place] [address] Consulting Physician Radiation Oncology 11/21/19 Berta Myles MD [facility] [place] [address] Referring Physician Dermatology 11/21/19 07/05/20 Michele Garduno MD [address] DEPT OPHTHALMOLOGY, [address] [address] Surgeon Ophthalmology 11/01/24 documented as of this encounter
--- OUTSIDE RECORDS SUMMARY | 2024-11-19 18:45 | XMS_ITS | Encounter Summary ---
Author Organization [facility] [facility] Address [address] [place] [address] Phone Care Team Providers Care Bobbin Loose End Finder Name Role Phone Oliver Tidwell MD PhD Unavailable [phone] Osmar Echevarria MD Unavailable [phone] Bryce Real MD Unavailable [phone] Berta Myles MD Unavailable [phone] Heri Torres MD Primary Care Provider [phone] Michele Garduno MD Unavailable [phone] Encounter Details Date Type Department Care Team (Latest Contact Info) Description 01/22/2020 Orders Only [facility] Scanning, Provider Social [...] on file Legal Sex Male 11:53 PM TOMATO PASTE MAKER Gender Identity Not on file Sexual Orientation Not on file documented as of this encounter Plan of Treatment Not on file documented as of this encounter Procedures Procedure Name Priority Date/Time Associated Diagnosis Comments SCAN - RADIOLOGY/IMAGING 01/22/2020 documented in this encounter Results * SCAN - RADIOLOGY/IMAGING (01/22/2020) Anatomical Region Laterality Modality Other us Provider Scanning Final Result documented in this encounter Visit Diagnoses Not on filedocumented in this encounter Additional Health Concerns Infection Onset Date Last Indicated Resolved Time COVID: Suspected 12/18/2023 12/18/2023 12/18/2023 3:21 PM CDT documented as of this encounter Care Teams Bobbin Loose End Finder Relationship Specialty Start Date End Date Heri Torres MD [address] [place] [address] PCP - General Family Medicine 01/09/20 Oliver Tidwell MD PhD [address] [place] [address] Radiation Oncologist Radiation Oncology 05/07/18 Osmar Echevarria MD [address] [address] Referring Physician Neurology 11/21/19 [place] [address] [place] [address] # [address] [place] [address] Consulting Physician Radiation Oncology 11/21/19 Berta Myles MD [address] [place] [address] Referring Physician Dermatology 11/21/19 07/05/20 Michele Garduno MD [address] DEPT OPHTHALMOLOGY, [address] [address] Surgeon Ophthalmology 11/01/24 documented as of this encounter
--- OUTSIDE RECORDS SUMMARY | 2024-11-19 18:45 | XMS_ITS | Encounter Summary ---
Author Organization [facility] Address [address] [place] [address] Phone Care Team Providers Care Land Economist Name Role Phone Oliver Tidwell MD PhD Unavailable [phone] Osmar Echevarria MD Unavailable [phone] Bryce Real MD Unavailable [phone] Heri Torres MD Primary Care Provider [phone] Michele Garduno MD Unavailable [phone] Reason for Referral * Diagnostic Imaging (Routine) - Closed Specialty Diagnoses / Procedures Referred By Contcandy t Referred To Contact Diagnoses Senile cataract, unspecified age-related cataract type, unspecified laterality Secondary noninfectious iridocyclitis, bilateral Procedures OCT, Retina - OU - Both Eyes Danae Martinez MD [address] [facility] [place] [address] [place] [address] Phone: tel: fax: [facility] (All Locations) Referral ID Status Reason Start Date Expiration Date Visits Re quested Visits Authorized [id number] Closed 08/14/2023 09/12/2024 1 1 IOVASCULAR RN * Diagnostic Imaging (Routine) - Closed Specialty Diagnoses / Procedures Referred By Contac t Referred To Contact Diagnoses Senile cataract, unspecified age-related cataract type, unspecified laterality Procedures IOL Biometry - [place] [address] [place] [address] Phone: tel: fax: [facility] (All Locations) Referral ID Status Reason Start Date Expiration Date Visits Re quested Visits Authorized [id number] Closed 08/14/2023 09/12/2024 1 1 IOVASCULAR RN Encounter Details Date Type Department Care Team (Late st Contact Info) Description 08/14/2023 Orders Only [facility] Ophthalmology [address] [place] [address] 6[address] [place] [address] [place] [address] [place] [address] Senile cataract, unspecified age-related cataract type, unspecified laterality (Primary Dx); Secondary noninfectious iridocyclitis, bilateral Social History Tobacco Use Types Packs/Day Years Used Date Smoking Tobacco: Never Smokeless Tobacco: Never Alcohol Use Standard Drinks/Week Comments Yes 1 (1 standard drink = 0.6 oz pur e alcohol) 1 drink/wk AUDIT-C Answer Date Recorded Q1: How often do you have a drink containing alc ohol? Monthly or less 05/25/2022 Average Number of Drinks Not on file 022 Frequency of Binge Drinking Not on file 03/2022 PHQ-2 Answer Date Recorded PHQ-2 Total Score (If total score is 3 or more points, staff should administer the PHQ-9) 0 03/17/2023 Sex and Gender Information Value Date Recorded Sex Assigned at Not on file Legal Sex Male 11:53 PM CARDIOVASCULAR RN Gender Identity Not on file Sexual Orientation Not on file documented as of this encounter Plan of Treatment Pending Results Name Type Priority Associated Diagnoses Date /Time IOL Biometry - OU - Both Eyes Ophthalmology Routine Senile cataract, unspecified age-related cataract type, unspecified laterality 08/14/2023 4:01 PM CARDIOVASCULAR RN documented as of this encounter Results * OCT, Retina - OU - Both Eyes (08/14/2023 3:45 PM CARDIOVASCULAR RN) Anatomical Region Laterality Modality Head Other Narrative 08/14/2023 4:04 PM CARDIOVASCULAR RN Images from the original result were not included. Right Eye Quality was good. Left Eye Quality was good. Notes Right eye - good foveal contuor, subfoval drusen, no IRF/SRF Left eye - good foveal contour, ERM, subfoveal drusen, no IRF/SRF us Danae Martinez MD OPHTH TOMOGRAPHY Final Res ult documented in this encounter Visit Diagnoses Diagnosis Senile cataract, unspecified age-related cataract type, unspecified laterality Secondary noninfectious iridocyclitis, bilateral Senile cataract, unspecified age-related cataract type, unspecified laterality- Primary Secondary noninfectious iridocyclitis, bilateral documented in this encounter Additional Health Concerns Infection Onset Date Last Indicated Resolved Time COVID: Suspected 12/18/2023 12/18/2023 12/18/2023 3:21 PM CDT documented as of this encounter Care Teams Land Economist Relationship Specialty Start Date End Date Heri Torres MD [address] [place] [address] PCP - General Family Medicine 01/09/20 Oliver Tidwell MD PhD [address] [place] [address] Radiation Oncologist Radiation Oncology 05/07/18 Osmar Echevarria MD [address] [address] Referring Physician Neurology 11/21/19 Bryce Real MD [address] [facility] [address] [place] [address] Consulting Physician Radiation Oncology 11/21/19 Michele Garduno MD [address] DEPT OPHTHALMOLOGY, [place] [address] Surgeon Ophthalmology 11/01/24 documented as of this encounter
--- OUTSIDE RECORDS SUMMARY | 2024-11-19 18:45 | XMS_ITS | Clinical Summary ---
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 This disclosure is being madepursuant to the Care Everywhere program and may not contain all information available regarding this patient. Last updated 18.[facility] Allergies Active Allergy Reactions Criticality Noted Date Comments Christopher Inhibitors Cough Reaction: Cough, , Adhesive Sensitivity Skin Reactions,Rash High 2017 Other reaction(s): Blisters tape Extract Of Poison Amy Rash Medium 08/01/2017 Hydrocodone-Acetaminoph en Rash Medium 09/29/2018 Metoprolol Unknown 08/01/2017 Patient does not know if allergic to beta blockers, found on allergy list from [facility] of possible allergy to beta hamilton Morphine Nausea and/or Vomiting,Unknown Low 01/22/2020 Patient reports that it causes dry heaves & GI upset. Patient reports that it causes dry heaves & GI upset. Other reaction(s): Stomach upset Patient reports that it causes dry heaves & GI upset. Other 05/05/2011 States he may be allergic to Beta Blockers Rivaroxaban Urticaria Medium 09/12/2017 (was on post-op for DVT prevention) (was on post-op for DVT prevention) (was on post-op for DVT prevention) Medications * Be aware that medications may not be up to date on this document. Alwaysverify current medications with the patient. ALPRAZolam (XANAX) 1 MG tablet Take 1 (one) tablet by mouth at bedtime 8 Active atorvastatin (LIPITOR) 20 MG tablet Take 1 (one) tablet by mouth at bedtime Active dilTIAZem ER 24hr (TIAZAC) 180 MG capsule Take 1 (one) capsule by mouth once daily 8 Active losartan (COZAAR) 100 MG tablet Take 1 (one) tablet by mouth once daily 8 Active simethicone (GAS-X) 125 MG capsule Take 1 (one) capsule by mouth at bedtime 3 tab 7 Active tamsulosin (FLOMAX) 0.4 MG capsule Take 1 (one) capsule by mouth once daily 8 Active sertraline (ZOLOFT) 100 MG tablet Take 1 (one) tablet by mouth at bedtime 9 Active hydroCHLOROthia zide (HYDRODIURIL) 12.5 MG Take 1 (one) tablet by mouth once daily 3 9 Active oxybutynin CR 24hr (DITROPAN-XL) 10 MG tablet Take 1 (one) tablet by mouth at bedtime 9 Active aspirin EC (ECOTRIN) 81 MG tablet Take 1 (one) tablet by mouth at bedtime Active cyclobenzaprine (FLEXERIL) 5 MG tablet Take 1 (one) tablet by mouth 3 times daily as needed Active eszopiclone (LUNESTA) 3 MG tablet Take 1 (one) tablet by mouth nightly as needed for Insomnia Active traMADol (ULTRAM) 50 MG tablet TAKE 1 TABLET BY MOUTH EVERY 6 HOURS NEEDED FOR PAIN 60 tablet 0 Active pregabalin (LYRICA) 100 MG capsule 0 Active CARTIA XT 180 MG capsule Take 1 (one) capsule by mouth once daily 0 Active omeprazole (PRILOSEC) 40 MG capsule Take 1 (one) capsule by mouth once daily 0 Active albuterol HFA (PROVENTIL; VENTOLIN; PROAIR) 108 (90 Base) MCG/ACT inhaler albuterol sulfate HFA 90 mcg/actuation aerosol inhaler Active Active Problems Problem Noted Date Diagnosed Date Dysphagia, oral phase 01/22/2020 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 Lumbar disc disease 06/18/2019 Bilateral low back pain 01/23/2019 Leg weakness, bilateral 01/23/2019 Hx of colonic polyps 12/24/2018 Overview (01/23/2019): Overview: Added automatically from request for surgery [id number] 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 Arthritis of knee 09/12/2018 Primary osteoarthritis of right knee 06/21/2018 Presence of left artificial knee joint 8 Gouty arthritis 11/20/2017 Mixed hyperlipidemia 04/26/2017 Dizziness and giddiness 05/05/2011 Immunizations Immunization Administration Dates Next Due INFLUENZA VACCINE 05/06/2011 PNEUMOCOCCAL PPSV23 05/06/2011 Social History Tobacco Use Types Packs/Day Years Used Date Smoking Tobacco: Never Smokeless Tobacco: Never Tobacco Cessation:Counseling Given: Not Answered Alcohol Use Standard Drinks/Week Comments Yes 0.8 (1 standard drink = 0.6 oz p ure alcohol) occasional PHQ-2 Answer Date Recorded Patient Health Questionnaire-2 Score 0 01/22/2024 Sex and Gender Information Value Date Recorded Sex Assigned at Not on file Legal Sex 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 Gender Identity Not on file Sexual Orientation Not on file Last Filed Vital Signs Vital Sign Reading Time Taken Comments Blood Pressure 142/57 01/22/2024 10:03 AM CDT Pulse 70 01/22/2024 10:03 AM CDT Temperature 36.3 C (97.3 F) 11/28/2019 9:46 AM CDT Respiratory Rate 18 01/22/2024 10:03 AM CDT Oxygen Saturation 96% 01/22/2024 10:03 AM CDT Inhaled Oxygen Concentration - - Weight 97.1 kg (214 lb) 06/23/2022 8:55 AM STAGE MANAGER Height 165.1 cm (5' 5 ) 06/23/2022 8:55 AM STAGE MANAGER Body Mass Index 35.61 06/23/2022 8:55 AM STAGE MANAGER Plan of Treatment Health Maintenance Due Date Last Done Comments MEDICARE AWV 12 MONTHS 1945 DTAP/TDAP/TD VACCINES (1 - Tdap) 1965 ZOSTER VACCINE (1 of 2) 1996 PNEUMOCOCCAL VACCINE 50+ (2 of 2 - PCV) 05/06/2012 05/06/2011 Respiratory Syncytial Virus (RSV) Vaccine Pt: or over 60 yrs (1 - 1-dose 75+ series) 2021 COVID-19 VACCINE (4 - season) 2024 05/27/2021, 08/24/2020, 07/27/2020 DEPRESSION SCREENING 07/17/2024 01/22/2024 INFLUENZA VACCINE (Season Ended) 2025 04/22/2019, 05/21/2018, 04/08/2016, Additional history exists HEPATITIS C SCREENING Completed 01/22/2020, 020 HEPATITIS B VACCINE Aged Out No longe r eligible based on patient's age to complete this topic HIB VACCINE Aged Out No longer eligi ble based on patient's age to complete this topic HPV VACCINE Aged Out No longer eligi ble based on patient's age to complete this topic MENINGOCOCCAL (Group B) VACCINE SHARED DECISION-MAKING Aged Out No longer eligible based on patient's age to complete this topic MENINGOCOCCAL GROUPS A/C/Y/W VACCINE Aged Out No longer eligible based on patient's age to complete this topic Medical Devices Implanted Type Area Power Barker Device Identifier Shelf Expiration Date Model / Serial / Lot Cmnt Bone Cblt 40gm Hvisc Strl Implanted:Qty: 1 on 09/12/2018 by Cain Castillo MD at [facility] Right: Knee [employer] 11/30/2019 [id number] / / [id number] Cmpnt Fem Kn Rt Cr Cmnt Prm Vngrd Intlk Implanted:Qty: 1 on 09/12/2018 by Cain Castillo MD at [facility] Right: Knee [employer] 06/20/2028 [id number] / / [id number] Tray Tib 75mm Kn Cocr I Beam Implanted:Qty: 1 on 09/12/2018 by Cain Castillo MD at [facility] Right: Knee [employer] 06/21/2028 [id number] / / [id number] Cmpnt Ptlr 31mm 1 Pg Wire Ascnt Arcm Kn Implanted:Qty: 1 on 09/12/2018 by Cain Castillo MD at [facility] Right: Knee [employer] 08/23/2023 [id number] / / [id number] Vngrd Arcm Kn Ant Stab Implanted:Qty: 1 on 09/12/2018 by Cain Castillo MD at [facility] Right: Knee [employer] 07/31/2023 [id number] / / [id number] Insurance MEDICARE [employer] Advance Directives * Full Code (Latest Code Status on File) Date Activated Date Inactivated Comments 09/12/2018 12:31 PM 09/14/2018 1:58 PM * FULL RESUSCITATION Date Activated Date Inactivated Comments 05/05/2011 2:08 PM 05/07/2011 5:26 AM Care Teams Utility Worker Driver Relationship Specialty Start Date End Date Nicholas Santos MD PCP - General Internal Medicine 06/19/18 [place] [address] [place] [address] Orthopedic Surgery 06/19/18 [place] [address] [place] [address] Physical Medicine and Rehabilitation 01/30/19
--- OUTSIDE RECORDS SUMMARY | 2024-11-19 18:46 | XMS_ITS | Data Portability ---
Author Organization [facility],, Main Office Address [address] [place] [address] [place] [id number] Assessment No assessment recorded. Plan of Treatment Reminders Order Date Submit Date Provider Last Modified By Organization Details Last Modified Time Details Appointments None record ed. Lab None record ed. Referral None record ed. Procedures None record ed. Surgeries None record ed. Imaging None record ed. Medication Orders None record ed. Patient TargetsNo targets recorded. Patient InstructionsNo instructions recorded. Reason for Referral None Reported. Problems Name Problem SNOMED Code Status Onset Date Resolution Date Notes Provider Name and Address Organization Details Recorded Time Pain in both feet [id number] Active 2020 Flavia Kramer DPM [address] [place] [address],[address], [place], [address], [facility], 09:45:29 Hallux valgus 469367158 Active 2020 Flavia Kramer DPM [address] [place] [address],[address], [place], [address], [facility], 09:45:30 Bunion 847308484 Active 2020 Flavia Kramer DPM [address] [place] [address],[address], [place], [address], [facility], 09:45:31 Problem Notes None recorded. Procedures Surgical History Date Name Laterality Status Provider Name and Address Organization Details Recorded Time 05/10/20 21 Foot X-ray 3 Views completed Flavia Kramer DPM [address] [facility],[address], [place], [address], [facility], 05/11/2021 09:44:37 Joint Replacement completed [facility], 05/10/2021 10:11:54 tonsillectomy completed [facility], 05/10/2021 10:12:01 complete repair of rotator cuff completed [facility], 05/10/2021 10:12:23 Imaging Results None recorded. Procedure Notes None recorded. Medical Equipment None Reported. Allergies No known drug allergies Medications Name Sig Start Date Stop Date Status Note LastModified by Organization Details LastModified Time quetiapine 25 mg tablet active Not Available Not Available Not Available buspirone 5 mg tablet active Not Available Not Available Not Available doxycycline hyclate 100 mg capsule active Not Available Not Availab le Not Available atorvastatin 20 mg tablet active Not Available Not Available Not Available trazodone 50 mg tablet active Not Available Not Available Not Available Lidocaine Viscous 2 % mucosal solution active Not Available Not Mamta ilable Not Available prednisone 20 mg tablet active Not Available Not Available Not Available sertraline 100 mg tablet active Not Available Not Available Not Available omeprazole 40 mg capsule,delayed release active Not Available Not Available Not Available lidocaine-prilocain e 2.5 %-2.5 % topical cream active Not Available Not Availabl e Not Available tamsulosin 0.4 mg capsule active Not Available Not Available Not Available diltiazem CD 300 mg capsule,extended release 24 hr active Not Available Not Availabl e Not Available amlodipine 10 mg tablet active Not Available Not Available Not Available dexamethasone 2 mg tablet active Not Available Not Available Not Available cephalexin 500 mg capsule active Not Available Not Available Not Available buspirone 10 mg tablet active Not Available Not Available Not Available gabapentin 300 mg capsule active Not Available Not Available Not Available furosemide 20 mg tablet active Not Available Not Available Not Available gabapentin 100 mg capsule active Not Available Not Available Not Available zolpidem 10 mg tablet active Not Available Not Available Not Available albuterol sulfate HFA 90 mcg/actuation aerosol inhaler active Not Available Not Availa ble Not Available losartan 100 mg tablet active Not Available Not Available Not Available finasteride 1 mg tablet active Not Available Not Available Not Available Cartia XT 180 mg capsule,extended release active Not Available Not Available Not Available ciprofloxacin 0.3 %-dexamethasone 0.1 % ear drops,suspension active Not Available Not Avail able Not Available zolpidem ER 12.5 mg tablet,extended release,multiphase active Not Available Not Mamta ilable Not Available hydrochlorothiazide 12.5 mg tablet active Not Available Not Availab le Not Available Vitals Date Recorded Body height Body mass index (BMI) Body weight Heart rate Oxygen saturation Oxygen saturation in Arterial blood by Pulse oximetry Body temperature Systolic blood pressure Diastolic blood pressure Provider Name and Address Organization Details Last Updated DateTime 165.1 cm 38.3 kg/m2 202762. 25 g 63 /min 99 % 99 % 98.1 [degF] 129 mm[Hg] 56 mm[Hg] Violet [facility], 10:26:19 Social History Question Answer Notes LastModified by Organizat ion Details LastModified Time Tobacco Smoking Status Never Smoker [facility], 05/10/2021 10:11:36 What Is Your Level Of Alcohol Consumption? Moderate [email or web address] Information not available 05/10/2021 What Was The Date Of Your Most Recent Tobacco Screening? 05/10/2021 [email or web address] Information not available 05/10/2021 Do You Use Any Illicit Or Recreational Drugs? No Information not available 05/10/2021 Do You Or Have You Ever Used Any Other Forms Of Tobacco Or Nicotine? No [email or web address] Information not available 05/10/2021 Sex: Unknown Functional Status None recorded. Mental Status None recorded. Family History Relationship Description Onset Age of this Age Resolved Age Notes LastModified by Organization Details LastModified Time Unspecified Relation Arthritis [email or web address] Not available 10:11:16 Notes:Cancer Medical History Condition Response Coronary Artery Disease N Gout N Artificial Joints N Thyroid Problems N Lung Disease N Pacemaker N Anemia N Edema N Back Pain Y Deep Vein Thrombosis N Diabetes N Varicose Veins N Bleeding Disorder N Arthritis N Seizures/Epilepsy N Blood Clot N AIDS/HIV N Cancer Y Stroke N Asthma N Leg or Foot Ulcers N Raynaud's Disease N Peripheral Vascular Disease N Hepatitis N Liver Disease N Heart Disease N Rheumatoid Arthritis N Pulmonary Embolism N Fibromyalgia N Foot Deformity N Hypertension Y Osteoporosis N Kidney Disease N Past Encounters Encounter ID Performer Location Encounter Start Date Encounter Closed Date Diagnosis/Indication Diagnosis SNOMED-CT Code Diagnosis ICD10 Code Diagnosis Note [id number] Flavia Kramer DPM Main Office [address] [place] [address],[address] [place] [address] 05/10/2021 09:32:08 05/10/2021 10:25:22 Pain in both feet 4022306062 [id number] M79.671 M79.672 Patient's condition, etiologies , options for care, treatment plan, and prognosis were discussed with in detail. Both conservati ve and surgical options for care were reviewed. Ariadna stevens I discussed therapeuti c options including rest, home physical therapy, oral medication s, injectable medication s, further imaging, and changes in shoe gear. Discussed proper shoe gear and choices in detail and a handout demonstrat ing the icing and home physical therapy stretching techniques was given to the patient at this visit. Answered all of patient's questions. Discussed the benefits of prescripti on orthotics with the patient and explained that functional orthotics increase shock absorption and may prolong, or even potentiall y deter, the potential of requiring surgery for their condition. Discussed surgery in detail as well as the risks of procedure which include, but are not limited to: infection, recurrence , no improvemen t, worsening of condition, loss of limb, chronic swelling, chronic pain, hardware failure, need for future surgery, or numbness. Recovery time, post op protocols including weightbear ing status, and pain levels were discussed as well. The patient understand s the recovery time for this procedure and was given an opportunit y to ask questions. They understand that there are no guarantees on the outcome of any medical procedure and acknowledg es that no guarantee has been made with regard to these procedures . All questions were answered to the best of my ability and to the patient's satisfacti on. At this time we will pursue conservati ve therapy. Gel toe spacers dispensed. The patient voiced understand ing of the condition, home care, expected healing, and was happy with this treatment plan and is to return to the office in 6 - 8 weeks if symptoms do not improve, otherwise on an as needed basis. Hallux valgus [id number] M20.11 M20.12 Bunion 056646002 M21.61 1 M21.612 Health Concerns Section Related Observation LastModified by Organization Detai ls LastModified Time None Recorded Concern Status LastModified by Organization Details LastModified Time None Recorded Advance Directives Directive None Recorded Payers Encounter Date Sequence Insurance Name Policy Number Policy Aguiar Covered Member ID Aguiar Member ID Guarantor Name 05/10/2021 2 [employer] (MEDICARE SUPPLEMENT) Cain Joshi [id number] Cain Joshi 05/10/2021 1 [place] Cain Joshi [id number] Cain Joshi
--- OUTSIDE RECORDS SUMMARY | 2024-11-19 18:49 | XMS_ITS | Continuity of Care Document ---
Author Organization [facility] Address [address] [place] [address] Phone Care Team Providers Care Workers Compensation Adjuster Name Role Phone Krista WILSON, Anam Unavailable Unavailable Procedures Procedure Date Office consultation, [facility] X-ray exam lower spine 2-3 views 2007 Advance Directives Directive Yes / No Effective Date File Name No Information Encounters Encounter Description Practice Location Reason(s) For Visit Diagnoses Date Provider Providers Copied on Encounter Office consultation, moderate-high [facility], [address] [place] [address], [id number], tel:[phone] [facility] No Information [address] [place] [address], [place] [address], [place], [place], [id number] , . tel: [phone] Family History Family Member Type Diagnosis Age At Onset No Information Payers Payer name Insurance type Covered republican ID Authoriza tilopez(s) [employer] [id number] Social History Type Description Quantity Date Captured [...]
--- OUTSIDE RECORDS SUMMARY | 2024-11-19 18:49 | XMS_ITS | Continuity of Care Document ---
Author Organization [facility] Address [address] [place] [address] Phone Care Team Providers Care Parts Remover Name Role Phone Flo Hale MD Unavailable [...] OFFICE/OUTPA TIENT VISIT EST [facility], [address], [facility], tel:[phone] [facility] Spondylosis without myelopathy or radiculopathy, lumbosacral regionAcute bilateral low back pain without sciatica Aug-2 202 0 Geoffrey Rossi. [address] [facility], [place], [place], [address]. tel:[phone] [facility], [address], [address], tel:[phone] [facility] Spondylosis without myelopathy or radiculopathy, lumbosacral regionAcute bilateral low back pain without sciatica 0 Geoffrey Rossi. [address] [facility], [place], [place], [id number]. tel:[phone] [facility], [address], [address], [place] tel:[phone] [facility] No Information 0 Geoffrey Rossi. [address] [facility], [place], [place], [address]. tel:[phone] [facility], [address], [address], [place] tel:[phone] [facility] No Information 0 Geoffrey Rossi. [address] [facility], [place], [place], [id number]. tel:[phone] OFFICE/OUTPA TIENT VISIT NEW [facility], [address], [address], [place] tel:[phone] [facility] Body mass index (BMI) 36.0-36.9, adultSpondylos is without myelopathy or radiculopathy, lumbosacral regionAcute bilateral low back pain without sciatica 9 Wolfyoselynjanette Rossi. [address] [facility], [place], [place], [address]. tel:[phone] [facility], [address], [address], [place] tel:[phone] [facility] No Information 9 Augusta Cordova. [address] [place], [place], [address]. tel:[phone] OFFICE/OUTPA TIENT VISIT EST [facility], [address], [address], [place] tel:[phone] [facility] Status post left knee replacementPri marshall osteoarthritis of right knee 9 Augusta Cordova. [address] [place], [place], [address]. tel:[phone] OFFICE/OUTPA TIENT VISIT EST [facility], [address] [address], [place], [address], [place] tel:[phone] [facility] Status post left knee replacementPri marshall osteoarthritis of right kneeBody mass index (BMI) 39.0-39.9, adult 8 Kriegshauser Atr. [address] [facility], [place], [place], [address]. tel:[phone] OFFICE/OUTPA TIENT VISIT EST [facility], [address] [address], [place], [address], [place] tel:[phone] [facility] Primary osteoarthritis of right kneeBody mass index (BMI) 39.0-39.9, adult 8 [address] [address] [facility], [place], [place], [address]. tel:[phone] OFFICE/OUTPA TIENT VISIT EST [facility], [address], [address], [place] tel:[phone] [facility] Status post left knee replacementPri marshall osteoarthritis of right knee 8 [address] [address] [facility], [place], [place], [address]. tel:[phone] [facility], [address], [address], [place] tel:[phone] [facility] Status post left knee replacement 7 8 Boxdorfer Annalise. [address], [id number]. tel:[phone] [facility], [address], [address], [place] tel:[phone] [facility] Status post left knee replacement 0 8 Boxdorfer Annalise. [address], [id number]. tel:[phone] [facility], [address] [address], [place], [address], [place] tel:[phone] [facility] Status post left knee replacement 8 Boxdorfer Annalise. [address] [address], [place], [place], [address]. tel:[phone] [facility], [address] [address], [place], [address], [place] tel:[phone] [facility] Status post left knee replacement 8 Boxdorfer Annalise. [address] [address], [place], [place], [address]. tel:[phone] OFFICE/OUTPA TIENT VISIT EST [facility], [address], [address], [place] tel:[phone] [facility] Primary osteoarthritis of right kneePrimary osteoarthritis of left kneeBody mass index (BMI) 39.0-39.9, adult 8 Boxdorfer Annalise. [address] [address], [place], [place], [address]. tel:[phone] [facility], [address] [address], [place], [address], [place] tel:[phone] [facility] Primary osteoarthritis of left kneeEssential hypertension 7 [address] [address] [place], [place], [address]. tel:[phone] OFFICE/OUTPA TIENT VISIT EST [facility], [address] [address], [place], [address], [place] tel:[phone] [facility] Primary osteoarthritis of left knee 7 [address] [address] [place], [place], [address]. tel:[phone] OFFICE/OUTPA TIENT VISIT EST [facility], [address] [address], [place], [address], [place] tel:[phone] [facility] Primary osteoarthritis of right kneeAcute medial meniscus tear of right knee, subsequent encounterS/P arthroscopyPri marshall osteoarthritis of left kneeEssential hypertensionBo dy mass index (BMI) 40.0-44.9, adult 7 Bassam Woody. [address] [facility] [address] [facility], [place], [place], [address]. tel:[phone] [facility], [address] [address], [place], [address], [place] tel:[phone] [facility] Tear of medial meniscus of right knee, initial encounter 7 Kraust[address]er [address] [address] [place], [place], [address]. tel:[phone] [facility], [address], [address], [place] tel:[phone] [facility] Tear of medial meniscus of right knee, initial encounter 7 Kraustinhauser [address] [address] [facility], [place], [place], [address]. tel:[phone] OFFICE/OUTPA TIENT VISIT EST [facility], [address] [address], [place], [address], [place] tel:[phone] [facility] Primary osteoarthritis of left kneePrimary osteoarthritis of right kneeTear of medial meniscus of right knee, initial encounter 7 Kraust[address]hauser Art. [address] [facility], [place], [place], [address]. tel:[phone] OFFICE/OUTPA TIENT VISIT EST [facility], [address] [address], [place], [address], [place] tel:[phone] [facility] Primary osteoarthritis of right kneePrimary osteoarthritis of left knee Fe 7 K[address]auser [address] [address] [place], [place], [address]. tel:[phone] OFFICE/OUTPA TIENT VISIT EST [facility], [address] [address], [place], [address], [place] tel:[phone] [facility] Primary osteoarthritis of left kneePrimary osteoarthritis of right knee 7 K[address]er [address] [facility], [place], [place], [address]. tel:[phone] [facility], [address] [address], [place], [address], [place] tel:[phone] [facility] Primary osteoarthritis of left kneeTear of medial meniscus of right knee, initial encounter 6 Boxdorfer Annalsie. [address] [address], [place], [place], [address]. tel:[phone] [facility], [address] [address], [place], [address], [place] tel:[phone] [facility] Tear of medial meniscus of right knee, initial encounterPrima ry osteoarthritis of left knee 6 Boxdorfer Annalise. [address] [address], [place], [place], [address]. tel:[phone] OFFICE/OUTPA TIENT VISIT NEW [facility], [address] [address], [place], [address], [place] tel:[phone] [facility] Acute pain of left kneeAcute pain of right kneePrimary osteoarthritis of left kneeTear of medial meniscus of right knee, initial encounterBody mass index (BMI) 39.0-39.9, adult Feb- 6 [address] [address] [facility], [place], [place], [address]. tel:[phone] Referring Provider: Nicholas Cruz [address], [place], [address]. tel:[phone] [facility], [address] [address], [place], [address], [place] tel:[phone] [facility] Aftercare following surgeryCarpal tunnel syndrome Oct-0 4 Tanya Conley. [address], [place], [place], [address]. tel:[phone] [facility], [address] [address], [place], [address], [place] tel:[phone] [facility] Aftercare following surgeryCarpal tunnel syndrome 4 Tanya Conley. [address], [place], [place], [address]. tel:[phone] OFFICE/OUTPA TIENT VISIT EST [facility], [address] [facility] [address], [place], [address], [place] tel:[phone] [facility] Carpal tunnel syndromeHypert ension, Unspecified 4 Tanya Conley. [address], [place], [place], [address]. tel:[phone] Family History Family Member Type Diagnosis Age At Onset Mother Problem (finding) chronic obstructive argent[place] g disease Father Problem (finding) Father Problem (finding) malignant neoplasm of l anjum Immunizations Vaccine Date Status Comments Pneumo (2 yrs or older)(PPV) administered Source: Other Provider Payers Payer name Insurance type Covered alliance party ID Noah stewart(s) Medicare E2 OT [id number] Physician L[place] OT [id number] Social History Type Description Quantity Date Captured [...] Future Order: Lab Order CBC w/di ff ([id number]), Ordered on: Ordered Future Order: Lab Order Comprehe nsive Metabolic Panel ([id number]), Ordered on: Ordered History Of Present Illness Encounter Date Complaint History Of Prese nt Illness No Information Functional Status Date Functional Assessmen t No Information Instructions Date Instruction Additional Infor mation Fall risk home exerc ise program handout provided Home safety checklis t for fall hazards provided Weight monitoring Related to Bod y [...] ed to Primary osteoarthritis of left knee Apply moist heat or cold 20 min per hour. Related to Primary osteoarthritis of right knee Dietary management e ducation, guidance, and counseling Related to Body mass index (BMI) 40.0-44.9, adult Weight loss reduces stress on joints. Related to Primary osteoarthritis of right knee Giving encouragement to exercise Related to Body mass index (BMI) 39.0-39.9, adult Apply moist heat or cold 20 min per hour. Related to Primary osteoarthritis of left knee Discussed treatment options Rela lesli to Tear of medial meniscus of right knee, initial encounter Activity as tolerated Activity as tolerated Activity as tolerated Physical activity counseling Rel ated to Dietary Surveillance Counseling Assessments Type Assessment Date assessment Spondylosis without myelopathy or radiculopathy, lumbosacral region assessment Acute bilateral low back pain wi thout sciatica Patient Care Teams Name Effective Dates (start - stop) Status Members No Information
[2024-11-19 18:55] VITALS: BP 161/67; PULSE 72; RESP 16; TEMP 36.8; O2SAT 99
--- NOTE | 2024-11-19 19:04 | ED.GENADULT ---
HPI - General Adult General Chief complaint: Upper Respiratory Infection Stated complaint: Cough Source: patient Mode of arrival: ambulatory Limitations: no limitations History of Present Illness HPI narrative: Patient presents for evaluation of a cough for the last week. He has dyspnea on exertion at baseline but states that is getting worse. He denies any fever, chills, nausea, vomiting, leg swelling. He reports throat irritation secondary to coughing frequently. His recently had similar symptoms but hers have improved. He does not smoke. He tried taking Robitussin DM today without much improvement thereafter. Related Data Home Medications ?Medication ?Instructions ?Recorded ?Confirmed ?Last Taken ?Type albuterol sulfate 90 mcg/actuation 1 inh inhalation QID PRN Shortness 02/19/21 04/28/23 Unknown History aerosol inhaler Of Breath amlodipine 10 mg tablet 10 mg PO DAILY 02/19/21 04/28/23 Unknown History atorvastatin 20 mg tablet 20 mg PO HS 02/19/21 04/28/23 Unknown History baclofen 20 mg tablet 20 mg PO DAILY PRN Pain 02/19/21 04/28/23 Unknown History budesonide 160 mcg-glycopyr 9 2 inh inhalation BID 02/19/21 04/28/23 Unknown History mcg-formot 4.8 mcg/actuation HFA inhaler (Breztri Aerosphere) buspirone 5 mg tablet 5 mg PO BID 02/19/21 04/28/23 Unknown History diltiazem HCl 180 mg 180 mg PO DAILY 02/19/21 04/28/23 Unknown History capsule,extended release 24 hr (Cartia XT) ferrous sulfate 325 mg (65 mg 325 mg PO DAILY 02/19/21 04/28/23 Unknown History iron) tablet (iron) finasteride 1 mg tablet 1 mg PO DAILY 02/19/21 04/28/23 Unknown History furosemide 20 mg tablet (Lasix) 20 mg PO DAILY 02/19/21 04/28/23 Unknown History ddqpscfbulgz-avgmpxlw-rmlvef tablet 1 tablet PO DAILY 02/19/21 04/28/23 Unknown History sertraline 100 mg tablet (Zoloft) 100 mg PO DAILY 02/19/21 04/28/23 Unknown History simethicone 80 mg chewable tablet 80 mg PO DAILY 02/19/21 04/28/23 Unknown History tamsulosin 0.4 mg capsule 0.4 mg PO DAILY 02/19/21 04/28/23 Unknown History zolpidem 12.5 mg tablet,extended 12.5 mg PO DAILY 02/19/21 04/28/23 Unknown History release,multiphase aspirin 81 mg tablet,delayed 81 mg PO DAILY 04/28/23 04/28/23 Unknown History release (Adult Low Dose Aspirin) Allergies Allergy/AdvReac Type Severity Reaction Status Date / Time TRENT Inhibitors Allergy Unknown Verified 11/19/24 18:47 hydrocodone Allergy Unknown Verified 11/19/24 18:47 metoprolol Allergy Unknown Verified 11/19/24 18:47 morphine Allergy Unknown Verified 11/19/24 18:47 rivaroxaban (From Xarelto) Allergy Unknown Verified 11/19/24 18:47 adhesive AdvReac Hives Verified 11/19/24 18:47 Review of Systems Review of Systems: CONSTITUTIONAL: Denies fever, chills, or sweats. EYES: Denies visual changes, redness, or discharge. ENT: Reports throat irritation but denies sore throat per se. Denies rhinorrhea, congestion, or otalgia. CARDIOVASCULAR: Denies chest pain, palpitations, or edema. RESPIRATORY: Reports cough and dyspnea on exertion GASTROINTESTINAL: Denies abdominal pain, nausea, vomiting, or diarrhea. GENITOURINARY: Denies dysuria or hematuria. SKIN: Denies rash or itching. MUSCULOSKELETAL: Denies back pain, joint pain, or myalgia. NEUROLOGIC: Denies headache, numbness, dizziness, or weakness. PSYCHIATRIC: Denies anxiety or depression. [facility] Past Medical History Medical History (Updated 11/19/24 @ 20:16 by TRAM Hdz, ) Iron deficiency Hyperlipidemia Insomnia Hypertension Surgical History Surgical History No pertinent past surgical history Family History Family History Father Non-Hodgkin lymphoma Mother Chronic obstructive pulmonary disease Social History Social History Smoking status: Never smoker Substance use: never Living arrangements: with family Gender identity (if verbalized by the patient): Male Sexual Orientation (if Verbalized by the Patient): Straight or Heterosexual Spiritual care concerns: No Exam Narrative: GENERAL: Well-appearing, well-nourished, and in no acute distress. HEAD: Normocephalic, atraumatic. EYES: PERRLA and EOMI. ENT: Nares clear, no rhinorrhea or epistaxis. Mucous membranes moist. Oropharynx without tonsillar hypertrophy exudate or other lesions. Bilateral TMs pearly pa nonbulging NECK: Supple. No adenopathy or masses. No carotid bruits or JVD CHEST: Cough present on exam. Clear to auscultation. No respiratory distress. No wheezes rales or rhonchi HEART: Regular rate and rhythm. No murmur heard. Normal peripheral pulses. ABDOMEN: Soft, nontender, nondistended, normal active bowel sounds. EXTREMITIES: Normal range of motion. No edema. SKIN: Warm, dry, no rash. NEURO: No focal deficits. Alert and oriented x3. PSYCH: Normal mood and affect. Course Course Emergency Course: This is a 79-year-old male who presented for evaluation of a cough. COVID influenza were negative. Chest x-ray was obtained. There were delays in receiving receipt of chest x-ray reading. We plan to treat empirically for community-acquired pneumonia. He was given Rocephin and azithromycin while here. Just before time of discharge his chest x-ray resulted. No evidence of pneumonia on chest x-ray. Exam is consistent with viral URI. He has tolerated steroids well in the past. Will discharge with prednisone and Tessalon. He should follow-up with his primary care provider and go to the ER for worsening symptoms. Patient in agreement with plan of care. Level of Care: Express Care Visit Vital Signs Vital signs: Vital Signs Temperature 36.8 C 11/19/24 18:55 Pulse Rate 72 11/19/24 18:55 Respiratory Rate 16 11/19/24 18:55 Blood Pressure 161/67 H 11/19/24 18:55 Pulse Oximetry 99 11/19/24 18:55 Oxygen Delivery Room Air 11/19/24 18:55 Temperature 36.8 C 11/19/24 18:55 Pulse Rate 72 11/19/24 18:55 Respiratory Rate 16 11/19/24 18:55 Blood Pressure 161/67 H 11/19/24 18:55 Pulse Oximetry 99 11/19/24 18:55 Oxygen Delivery Room Air 11/19/24 18:55 Medical Decision Making Vital Signs Vital Signs: Vital Signs Temperature 36.8 C 11/19/24 18:55 Pulse Rate 72 11/19/24 18:55 Respiratory Rate 16 11/19/24 18:55 Blood Pressure 161/67 H 11/19/24 18:55 Pulse Oximetry 99 11/19/24 18:55 Oxygen Delivery Room Air 11/19/24 18:55 Temperature 36.8 C 11/19/24 18:55 Pulse Rate 72 11/19/24 18:55 Respiratory Rate 16 11/19/24 18:55 Blood Pressure 161/67 H 11/19/24 18:55 Pulse Oximetry 99 11/19/24 18:55 Oxygen Delivery Room Air 11/19/24 18:55 Lab Data Labs: Lab Results 11/19/24 Range/Units 18:54 POC Influenza A Ag Negative (Negative) POC Influenza B Ag Negative (Negative) POC SARS CoV-2 Ag Negative (Negative) Imaging Data Radiologist's impression: CHEST RADIOGRAPH, PA AND LATERAL CLINICAL HISTORY: cough . COMPARISON: 04/28/2023 TECHNIQUE: PA and lateral views of the chest. FINDINGS Right internal jugular central venous port catheter redemonstrated with its tip projecting over the cavoatrial junction. The remainder of the cardiomediastinal silhouette is otherwise unremarkable. The lungs are clear. IMPRESSION: No focal infiltrate or effusio Discharge Plan Discharge Clinical Impression: Upper respiratory infection, viral Patient Disposition: Home Condition: Stable Instructions: Antibiotic Form, Upper Respiratory Infection (ED), Viral Syndrome (ED), Acute Cough (ED) Patient Language: [place] Prescriptions: New prednisone 20 mg tablet 40 mg PO DAILY 5 Days Qty: 10 0RF benzonatate 100 mg capsule 100 mg PO TID PRN (Reason: cough) Qty: 30 0RF No Action hydroxyzine HCl 10 mg tablet 10 mg PO Q6-8H PRN (Reason: itching) Qty: 30 0RF ipratropium bromide 21 mcg (0.03 %) spray,non-aerosol 2 spray NASAL TID PRN (Reason: nasal drainage) Qty: 30 0RF Rx Instructions: administer into each nostril aspirin [Adult Low Dose Aspirin] 81 mg Tablet,Delayed Release (Dr/Ec) 81 mg PO DAILY benzonatate 100 mg capsule 100 mg PO TID PRN (Reason: cough) 5 Days Qty: 10 0RF fluticasone propionate [Flonase Allergy Relief] 50 mcg/actuation spray,suspension 2 spray NASAL BID Qty: 9.9 0RF Rx Instructions: administer into each nostril buspirone 5 mg Tablet 5 mg PO BID atorvastatin 20 mg Tablet 20 mg PO HS diltiazem HCl [Cartia XT] 180 mg Capsule,Extended Release 24hr 180 mg PO DAILY baclofen 20 mg Tablet 20 mg PO DAILY PRN (Reason: Pain) amlodipine 10 mg Tablet 10 mg PO DAILY Centrum Silver Tablet 1 tablet PO DAILY sertraline [Zoloft] 100 mg Tablet 100 mg PO DAILY tamsulosin 0.4 mg Capsule 0.4 mg PO DAILY ferrous sulfate [iron] 325 mg (65 mg iron) Tablet 325 mg PO DAILY furosemide [Lasix] 20 mg Tablet 20 mg PO DAILY albuterol sulfate 90 mcg/actuation Hfa Aerosol Inhaler 1 inh INHALATION QID PRN (Reason: Shortness Of Breath) finasteride 1 mg Tablet 1 mg PO DAILY simethicone [Gas-X] 80 mg Tablet,Chewable 80 mg PO DAILY zolpidem 12.5 mg Tablet,Ext Release Multiphase 12.5 mg PO DAILY Breztri Aerosphere 160-9-4.8 mcg/actuation Hfa Aerosol Inhaler 2 inh INHALATION BID Follow-up/Referrals: Harms,Heri Pena M.D. [Primary Care Provider] - Time of Disposition: 20:16
[2024-11-19 19:12] LABS: EDCOVIDSCREEN Negative (Negative); EDINFLUASCREEN Negative (Negative); EDINFLUBSCREEN Negative (Negative)
[2024-11-19] MEDS: AZITHROMYCIN 250 MG TABLET 500 MG PO (20:05)
[2024-11-19] MEDS: cefTRIAXone 1 GM, LIDOCAINE 1% LOCAL INJ 2.1 ML IM (20:06)
== END 2024-11-19 20:26 | disposition home or self-care (01) ==
PROVIDERS: Emergency Provider Nurse Practitioner; PCP Family Medicine
DX: J06.9 Acute upper respiratory infection, unspecified (principal); Z20.822 Contact with and (suspected) exposure to COVID-19; E78.5 Hyperlipidemia, unspecified; I10 Essential (primary) hypertension; E61.1 Iron deficiency
CPT/HCPCS: 71046; 87426; 87804; 96372; 99213; A9270; G0463; J0696; J2003